=== PATIENT | female | born 1955 | race Caucasian/White ===

== ENCOUNTER → 2018-04-03 16:01 | Outpatient (CLI) | payer OTHER, SELFPAY ==
--- NOTE | 2018-04-06 09:59 | DIET.PN ---
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 Arrives with friend (partner?), Debby. Debby is very supportive. Pt has lost wt and regained many times. Now has hyperlipidemia and pre-diabetes, though minimizing those health issues. Hesitant to discuss weight- understandable so. Gets minimal exercise, especially during tax season. Admits she does feel better when she does some walking during tax season. Along with not moving, clients bring her candy and states candy/carbs are like crack cocaine to her. Usual diet: 3 meals - brk, late lunch and late dinner. Snacks on nuts. (and candy) Dx: morbid obesity, pre-DM, hyperlipidemia, HTN (though pt thinks this is one episode and r/t cold meds) Ht 5'8 Wt (per MD visit): 366# (166.4kg) Deferred weighing today BMI: 55 A1C: 6.5 Assessment: Obstacles to wt loss success - morbid obesity w/presumed inflammation and dysmetabolism, sedentary lifestyle and work environment, carb cravings/sugar addict. Pt hesitant but became more engaged in trying to make lifestyle changes as session continued. Intervention: Provided ed on inflammation and effect of dysmetabolism on appetite regulation/carb cravings; nutrients in food and effect on blood glucose, inflammatory effect of excessive sugar. Plan: Keep food rec (phone gifty, if desire) Very low carb or Keto diet to tame cravings and appetite Prep to exercise - get out treadmill/make accessible; download exercise playlist (likes to move to music), etc Devise method of disposing candy F/u 2 wks
== END ==
PROVIDERS: PCP Nurse Practitioner Family; Visit Provider Nurse Practitioner Family
DX: E66.01 Morbid (severe) obesity due to excess calories (principal); Z68.43 Body mass index [BMI] 50.0-59.9, adult; R73.03 Prediabetes; I10 Essential (primary) hypertension; E78.5 Hyperlipidemia, unspecified
CPT/HCPCS: 97802

== ENCOUNTER 2018-11-13 07:43 | Day surgery (SDC) | payer OTHER, SELFPAY ==
--- NOTE | 2018-11-13 | PATH_ITS ---
[facility] Accession Number: [id number] . 01 Material submitted: . PART A: colon - COLON POLYP AT 65 CM PART B: colon - COLON POLYP AT 40 CM PART C: rectum - RECTUM POLYP, NEAR ANUS . 02 Diagnosis: A. Colon at 65 cm, Polyp: Tubular adenoma. . B. Colon at 40 cm, Polyp: Tubular adenoma. . C. Rectum, Near Anus, Polyp: Hyperplastic polyp. MRV/11/14/2018 . 02 Electronically signed: . Lauri Berry MD, PhD, Pathologist NPI- [id number] . 01 Gross description: . Part A: COLON POLYP AT 65 CM: Received in formalin are 3 fragment(s) of can, soft tissue measuring 0.1 x 0.1 x 0.1 cm to 0.3 x 0.2 x 0.1 cm which is entirely submitted and submitted entirely in 1 cassette(s) Part B: COLON POLYP AT 40 CM: Received in formalin is 1 fragment(s) of can, soft tissue measuring 0.6 x 0.5 x 0.5 cm which is entirely submitted and submitted entirely in 1 cassette(s) Part C: RECTUM POLYP, NEAR ANUS: Received in formalin is 1 fragment(s) of can, soft tissue measuring 0.2 x 0.1 x 0.1 cm which is entirely submitted and submitted entirely in 1 cassette(s) /[facility] /[facility] . 02 Pathologist provided ICD-10: D12.6, K62.1 . 02 CPT . 734092, 959451, [id number] Performed at: [address], [place], [place] [id number] MD Berny Isaac MD Phone: [phone] Performed at: 02 [facility] [address] [place] [id number] MD Kia Carpenter MD Phone: [phone]
[2018-11-13 08:13] VITALS: BP 155/91; PULSE 80; RESP 15; TEMP 36.3; O2SAT 96; BMI 52.6
--- NOTE | 2018-11-13 08:50 | PM.HP.1 ---
History of Present Illness Date Patient Seen: 11/13/18 Time Patient Seen: 08:50 Chief complaint: [id number] Narrative: The patient is woman who is never had a colonoscopy. She 63. Her father had polyps. Patient History Medical History Prediabetes (Acute) Surgical History S/P tonsillectomy and adenoidectomy (Acute) Social History household members: none Family & Social History Social History: household members none Meds Home Medications Medication Instructions Recorded Confirmed Type acetaminophen [Tylenol 8 Hour] 1,300 mg PO Q8H PRN 11/13/18 11/13/18 History naproxen sodium [Aleve] 220 mg PO Q12H PRN 11/13/18 11/13/18 History Allergies Allergy/AdvReac Type Severity Reaction Status Date / Time No Known Allergies Allergy Uncoded 06/28/17 12:46 Review of Systems Review of Systems All systems reviewed & are unremarkable except as noted in HPI and below Exam Vital Signs (past 8 hours): - 11/13/18 08:13 Temperature 97.4 F L Pulse Rate 80 Respiratory Rate 15 Blood Pressure 155/91 H Pulse Oximetry 96 Oxygen Delivery Method Room Air Narrative Exam Narrative: Pleasant cooperative patient no apparent distress. Lungs are clear to auscultation. No rales or rhonchi. Heart regular rate and rhythm no murmur gallop. Abdomen is soft nontender without mass. Her BMI is 52 and would be difficult to feel abnormalities. No obvious hernias. Patient is alert and oriented x3. Assessment & Plan Assessment & Plan narrative: The patient for a screening colonoscopy. I have discussed the procedure with them. Risks of bleeding, perforation which would necessitate major operation, failure to find remove all lesions, the potential tattoo were all discussed. All questions were answered. They wished to proceed.
[2018-11-13] MEDS: fentaNYL 250 MCG/5 ML INJ IV (09:01)
[2018-11-13] MEDS: MIDAZOLAM 5 MG/5 ML VIAL IV (09:01)
--- NOTE | 2018-11-13 09:27 | P.OP.ENDO_ITS ---
Operative Date/Time/Diagnoses Date of procedure: 11/13/18 Time of procedure: 09:23 Pre-op diagnosis: Screening exam. This is her 1st colonoscopy. Post-op diagnosis: same (Polyps) Procedure & Clinicians Study performed: Colonoscopy with cold biopsy and hot snare polypectomy Same procedure as scheduled: Yes Indications: Screening Surgeon: Johnathon Morales Procedure Notes SCOAP/Timeout: Performed Procedure in detail: The patient was placed in the left lateral decubitus position and underwent IV sedation directed by the surgeon consisting of fentanyl and Versed. Digital exam was remarkable for external hemorrhoids.. T he scope was inserted and advanced through the rectum into the sigmoid, descending, transverse, and ascending colon. I encountered a polyp on the way in that it was large enough that I decided to snare on the way out the patient was noted to have diverticulosis on both sides of her colon.. The cecum was reached identified by the ileocecal valve . A portion of the cecum could not be well seen. The scope was gradually brought out. Polyps were found at 65 cm, 40 cm and a small rectal polyp. The lesion of 40 cm with the largest and required a hot snare polypectomy performed. The other lesions were removed with cold biopsy forceps.. The scope ultimately was retroflexed in the rectum. The appearance was remarkable for small polyp which I removed.. The scope was removed and the patient tolerated the procedure well. The prep was very good. Scope withdrawal time: 10 1/2 minutes total Sedation minutes: 25 Findings: diverticulosis (Witt colonic) and polyp Specimen(s): other (Polyps) Complications: none Recommendations: Colonscopy in 5 years Follow up: as needed Disposition: PACU
[2018-11-13 09:29] VITALS: BP 127/82; PULSE 71; RESP 16; TEMP 36; O2SAT 97
[2018-11-13 09:34] VITALS: BP 127/79; PULSE 67; RESP 12; O2SAT 97
[2018-11-13 09:38] VITALS: BP 118/73; PULSE 69; RESP 12; TEMP 36; O2SAT 95
== END 2018-11-13 09:55 | disposition home or self-care (01) ==
PROVIDERS: PCP Nurse Practitioner Family; Visit Provider Specialist
PROC: 0DJD8ZZ Inspection of Lower Intestinal Tract, Via Natural or Artificial Opening Endoscopic (ICD-10-PCS; CPT 45378; principal; 2018-11-13 08:45)
DX: Z12.11 Encounter for screening for malignant neoplasm of colon (principal); D12.6 Benign neoplasm of colon, unspecified; K62.1 Rectal polyp; K64.4 Residual hemorrhoidal skin tags; K57.30 Diverticulosis of large intestine without perforation or abscess without bleeding; Z83.71 Family history of colonic polyps
CPT/HCPCS: 45385; 45380; 99152; J2250; J3010

== ENCOUNTER → 2019-08-22 09:59 | Outpatient (CLI) | payer OTHER, SELFPAY ==
--- NOTE | 2019-08-22 10:01 | DI.US.S_ITS ---
PROCEDURE: US PELVIC COMPLETE INDICATIONS: POSTMENOPAUSAL BLEEDING TECHNIQUE: Real-time scanning was performed of the pelvic organs, with image documentation. Additional endovaginal scanning was necessary due to incomplete visualization of the adnexal and endometrial structures by transabdominal scanning. COMPARISON: None. FINDINGS: Transabdominal scanning: Limited scanning through the kidneys shows no hydronephrosis. No pathologic free abdominal or pelvic fluid. Endovaginal scanning: Uterus: Uterus is abnormally enlarged in size for postmenopausal patient at 6.8 x 7.6 x 8.4 cm. The endometrium measures 55 mm in combined thickness, containing a heterogeneous internal masslike structure. Increased blood flow is associated. Ovaries: Not seen on the right and measuring 3.6 x 5.4 x 5.3 cm on the left with a complex cystic structure containing several internal septations within, measuring up to 3.8 x 2.9 x 4.5 cm. IMPRESSION: 2 separate areas of pathology appear present, the 5.5 cm thick endometrial lesion representing the most likely site of malignancy. Gynecological consultation is recommended for what appears to be likelihood of endometrial carcinoma. Additionally, there is a mild to moderately complex cyst at the left ovary, measuring up to 3.8 x 2.9 x 4.5 cm which by size and appearance is considered potentially a manifestation of malignancy also. The right ovary could not be located. Dictated by: Woody Hood M.D. on 08/22/2019 at 11:28 Approved by: Woody Hood M.D. on 08/22/2019 at 11:32
[2019-08-22 11:30] LABS: Hemoglobin A1C% w Est Avg Glu 6.5 % (4.0-6.0)
[2019-08-22 11:32] LABS: Add Manual Diff / Slide Review NO; Basophils Absolute Auto 0 /uL (0-100); Basophils Percent Auto 0.5 % (0-2); Eosinophils Absolute Auto 200 /uL (0-450); Eosinophils Percent Auto 3.1 % (2-4); Hematocrit 39.2 % (36-46); Hemoglobin 13.1 g/dL (12.0-16.0); Lymphocytes Absolute Auto 500 /uL (1100-4500); Lymphocytes Percent Auto 8.9 % (25-40); Mean Corpuscular HGB Conc 33.5 % (30-36); Mean Corpuscular Hemoglobin 27.8 PG (26-34); Mean Corpuscular Volume 83.2 fL (80-100); Monocytes Absolute Auto 700 /uL (0-900); Monocytes Percent Auto 11.7 % (3-14); Neutrophils Absolute Auto 4300 /uL (1500-7000); Neutrophils Percent Auto 75.8 % (50-75); Platelet Count 284 X10^3/uL (150-400); Red Blood Cell Count 4.71 X10^6/uL (4.0-5.2); Red Cell Distribution Width 15.7 % (11.6-14.8); White Blood Cell Count 5.6 X10^3/uL (4.5-11.0)
[2019-08-22 11:34] LABS: Alanine Aminotransferase 26 IU/L (<35); Albumin 4.4 g/dL (3.5-5.0); Albumin Globulin Ratio 1.5 (1.0-2.8); Alkaline Phosphatase 66 U/L (38-126); Aspartate Aminotransferase 32 IU/L (14-36); BUN Creatinine Ratio 21.8 (6-22); Bilirubin Total 0.4 mg/dL (0.2-1.3); Blood Urea Nitrogen 17 mg/dL (7-17); Calcium 9.9 mg/dL (8.4-10.2); Carbon Dioxide 25 mmol/L (22-32); Chloride 104 mmol/L (98-107); Estimated Glomerular Filt Rate > 60.0 mL/min (>60); Glucose 118 mg/dL (80-110); HEMOLYSIS < 15 (0-50); Potassium 4.5 mmol/L (3.4-5.1); Sodium 139 mmol/L (137-145); Total Protein 7.4 g/dL (6.3-8.2)
[2019-08-22 11:51] LABS: Vitamin D 25 Hydroxy (D3) 16.1 ng/mL (30.0-100.0)
[2019-08-22 12:03] LABS: Free T3, Triiodothyronine Free 3.24 pg/mL (2.77-5.27); Free T4, Direct Thyroxine 1.15 ng/dL (0.78-2.19)
[2019-08-22 12:17] LABS: Thyroid Stimulating Hormone 3.79 uIU/mL (0.47-4.68)
== END ==
PROVIDERS: PCP Family Medicine; Referring Provider Family Medicine; Visit Provider Family Medicine
DX: N95.0 Postmenopausal bleeding (principal); R73.03 Prediabetes; N85.9 Noninflammatory disorder of uterus, unspecified; N83.292 Other ovarian cyst, left side
CPT/HCPCS: 36415; 76830; 76856; 80053; 82306; 83036; 84439; 84443; 84481; 85025

== ENCOUNTER → 2019-08-28 16:30 | Outpatient (CLI) | payer OTHER, SELFPAY ==
[2019-08-28 18:18] LABS: Cancer Antigen 125 147 U/mL (0-35); Carcinoembryonic Antigen 1.8 ng/mL (0.1-3.0)
[2019-08-29 14:08] LABS: Cancer (Carbohydrate) Ag 19-9 44 U/mL (0-35)
[2019-08-31 18:10] LABS: Estrogen 119 pg/mL (.)
[2019-09-03 13:39] LABS: Inhibin B <7.0 pg/mL (0.0-16.9)
== END ==
PROVIDERS: PCP Family Medicine; Referring Provider Obstetrics & Gynecology; Visit Provider Obstetrics & Gynecology
DX: N83.202 Unspecified ovarian cyst, left side (principal); N94.89 Other specified conditions associated with female genital organs and menstrual cycle; N95.0 Postmenopausal bleeding
CPT/HCPCS: 82378; 82672; 83520; 86301; 86304; 86305; 86336

== ENCOUNTER → 2020-08-07 11:05 | Outpatient (CLI) | payer OTHER, SELFPAY ==
[2020-08-07 11:56] LABS: Add Manual Diff / Slide Review NO; Basophils Absolute Auto 0 /uL (0-100); Basophils Percent Auto 0.6 % (0-2); Eosinophils Absolute Auto 200 /uL (0-450); Hematocrit 39.6 % (36-46); Hemoglobin 13.2 g/dL (12.0-16.0); Lymphocytes Absolute Auto 500 /uL (1100-4500); Lymphocytes Percent Auto 8.2 % (25-40); Mean Corpuscular HGB Conc 33.4 % (30-36); Mean Corpuscular Hemoglobin 29.7 PG (26-34); Mean Corpuscular Volume 88.8 fL (80-100); Monocytes Absolute Auto 600 /uL (0-900); Monocytes Percent Auto 9.7 % (3-14); Neutrophils Absolute Auto 4600 /uL (1500-7000); Neutrophils Percent Auto 78.5 % (50-75); Platelet Count 335 X10^3/uL (150-400); Red Blood Cell Count 4.46 X10^6/uL (4.0-5.2); Red Cell Distribution Width 14.9 % (11.6-14.8); White Blood Cell Count 5.8 X10^3/uL (4.5-11.0)
[2020-08-07 12:04] LABS: Hemoglobin A1C% w Est Avg Glu 5.7 % (4.0-6.0)
[2020-08-07 12:19] LABS: Alanine Aminotransferase 26 IU/L (<35); Albumin 4.5 g/dL (3.5-5.0); Albumin Globulin Ratio 1.6 (1.0-2.8); Alkaline Phosphatase 73 U/L (38-126); Aspartate Aminotransferase 28 IU/L (14-36); BUN Creatinine Ratio 24.7 (6-22); Bilirubin Total 0.3 mg/dL (0.2-1.3); Blood Urea Nitrogen 18 mg/dL (7-17); Calcium 10.4 mg/dL (8.4-10.2); Carbon Dioxide 26 mmol/L (22-32); Chloride 104 mmol/L (98-107); Cholesterol 210 mg/dL (140-199); Estimated Glomerular Filt Rate > 60.0 mL/min (>60); Globulin 2.9 g/dL (1.7-4.1); Glucose 114 mg/dL (80-110); HDL Cholesterol 37 mg/dL (40-60); HEMOLYSIS < 15 (0-50); LDL Cholesterol Calculated 135 mg/dL (<100); Potassium 4.2 mmol/L (3.4-5.1); Sodium 140 mmol/L (137-145); Total Protein 7.4 g/dL (6.3-8.2); Triglycerides 192 mg/dL (35-150)
[2020-08-07 16:30] LABS: Vitamin D 25 Hydroxy (D3) 52.7 ng/mL (30.0-100.0)
== END ==
PROVIDERS: PCP Family Medicine; Referring Provider Family Medicine; Visit Provider Family Medicine
DX: E11.9 Type 2 diabetes mellitus without complications (principal); E55.9 Vitamin D deficiency, unspecified; Z68.42 Body mass index [BMI] 45.0-49.9, adult
CPT/HCPCS: 36415; 80053; 80061; 82306; 83036; 85025

== ENCOUNTER → 2021-04-03 09:20 | Outpatient (CLI) | payer OTHER, SELFPAY ==
[2021-04-03 10:11] LABS: COVID19 -Nasal RAPID Negative (Negative)
== END ==
PROVIDERS: PCP Family Medicine; Referring Provider Nurse Practitioner Family; Visit Provider Nurse Practitioner Family
DX: Z20.822 Contact with and (suspected) exposure to COVID-19 (principal)
CPT/HCPCS: 87635

== ENCOUNTER → 2021-09-14 10:11 | Outpatient (CLI) | payer OTHER, SELFPAY ==
[2021-09-14 10:36] LABS: Add Manual Diff / Slide Review NO; Basophils Absolute Auto 0 /uL (0-100); Basophils Percent Auto 0.7 % (0-2); Eosinophils Absolute Auto 700 /uL (0-450); Eosinophils Percent Auto 11.3 % (2-4); Hematocrit 41.3 % (36-46); Hemoglobin 14.4 g/dL (12.0-16.0); Lymphocytes Absolute Auto 1000 /uL (1100-4500); Lymphocytes Percent Auto 17.2 % (25-40); Mean Corpuscular HGB Conc 34.8 % (30-36); Mean Corpuscular Hemoglobin 31.5 PG (26-34); Mean Corpuscular Volume 90.5 fL (80-100); Monocytes Absolute Auto 500 /uL (0-900); Monocytes Percent Auto 8.8 % (3-14); Neutrophils Absolute Auto 3700 /uL (1500-7000); Platelet Count 227 X10^3/uL (150-400); Red Blood Cell Count 4.57 X10^6/uL (4.0-5.2); Red Cell Distribution Width 16.2 % (11.6-14.8)
[2021-09-14 10:54] LABS: Alanine Aminotransferase 53 IU/L (<35); Albumin 4.6 g/dL (3.5-5.0); Albumin Globulin Ratio 1.6 (1.0-2.8); Alkaline Phosphatase 63 U/L (38-126); Aspartate Aminotransferase 50 IU/L (14-36); BUN Creatinine Ratio 19.8 (6-22); Bilirubin Total 0.6 mg/dL (0.2-1.3); Blood Urea Nitrogen 18 mg/dL (7-17); Calcium 9.8 mg/dL (8.4-10.2); Carbon Dioxide 26 mmol/L (22-32); Chloride 105 mmol/L (98-107); Cholesterol 206 mg/dL (140-199); Estimated Glomerular Filt Rate > 60 mL/min (>60); Globulin 2.9 g/dL (1.7-4.1); Glucose 110 mg/dL (80-110); HDL Cholesterol 34 mg/dL (40-60); HEMOLYSIS < 15 (0-50); LDL Cholesterol Calculated 130 mg/dL (<100); Potassium 4.3 mmol/L (3.4-5.1); Sodium 139 mmol/L (137-145); Total Protein 7.5 g/dL (6.3-8.2); Triglycerides 208 mg/dL (35-150)
[2021-09-14 11:17] LABS: Hemoglobin A1C% w Est Avg Glu 5.9 % (4.0-6.0)
== END ==
PROVIDERS: PCP Family Medicine; Referring Provider Family Medicine; Visit Provider Family Medicine
DX: E11.9 Type 2 diabetes mellitus without complications (principal); E55.9 Vitamin D deficiency, unspecified; Z68.42 Body mass index [BMI] 45.0-49.9, adult
CPT/HCPCS: 36415; 80053; 80061; 83036; 85025

== ENCOUNTER 2022-02-03 12:14 | Inpatient (IN) | payer OTHER, SELFPAY ==
[2022-02-03] VITALS (21 sets, daily range): BP systolic 72–107; BP diastolic 38–62; PULSE 69–81; RESP 14–24; TEMP 35.6–36.3; O2SAT 92–100; BMI 44.1
--- NOTE | 2022-02-03 14:32 | ED_ITS ---
HPI - Abdominal Pain General Chief Complaint: Abdominal Pain Stated Complaint: Endometrial cancer, NonHodgkins lymphoma, ABD pain Time Seen by Provider: 02/03/22 14:31 Source: patient Mode of arrival: Ambulatory Limitations: no limitations History of Present Illness HPI narrative: This is a 66-year-old female with endometrial cancer, non-Hodgkin's lymphoma who is in between chemotherapy treatments. Patient states she is been having some abdominal discomfort that has been slowly worsening over the past 2 months, particularly the last month and really ramped up over the past week. She did have her COVID/influenza vaccination at beginning of the week. She would a temperature of a 100? F at 1 point but has not had persistent. She states eating too much food really increases her pain she describes it as across her abdomen at the mid level but also left flank when this happens. She denies nausea or vomiting. She denies chest pain or shortness of breath. She denies dysuria urgency or frequency. No vaginal bleeding or discharge. Patient states she has been having loose stools she normally takes a stool softener but they have been more diarrheal no black or bloody stools but she has significant re ctal pain when having bowel movements. She does have tumors that are growing through her skin on her anterior abdomen but she states they are not draining do not appear to have been red or infected. She follows with [facility] for her endometrial cancer and [facility] for her lymphoma. Patient has had prior hysterectomy in 2019. She denies allergies to medications. She is been taking Tylenol 500 mg to a 1000 mg for pain she has found this helpful. Her last dose of lenvatinib was January 24 as well as Keytruda. She is supposed to start a new chemotherapy tomorrow. Patient presents today after reaching out to the nursing hotline they did not call her yesterday she spoke with them this morning and they recommended she come for evaluation. Related Data Home Medications Medication Instructions Recorded Confirmed lenvatinib 14 mg/day (10 mg x 1 14 mg PO DAILY 09/14/21 10/29/21 and 4 mg x 1) capsule (Lenvima) pembrolizumab 25 mg/mL intravenous 200 mg IV Q3W 09/14/21 10/29/21 solution (Keytruda) apixaban 5 mg tablet (Eliquis) 5 mg PO BID 10/29/21 10/29/21 lisinopril 10 mg tablet 20 mg PO DAILY 10/29/21 magnesium oxide 400 mg PO BID 10/29/21 10/29/21 sennosides 8.6 mg capsule (senna) 8.6 mg PO DAILY PRN 10/29/21 10/29/21 Allergies Allergy/AdvReac Type Severity Reaction Status Date / Time No Known Drug Allergies Allergy Verified 02/03/22 12:21 Review of Systems Review of Systems ROS Unobtainable: All systems reviewed & are unremarkable except as noted in HPI and below Patient History Medical History Actinic keratosis due to exposure to sunlight BMI 45.0-49.9, adult Diabetes Endometrial cancer HTN (hypertension) Lymphocytopenia Non-Hodgkins lymphoma Right arm pain Screening for breast cancer Transaminitis Vitamin D deficiency Surgical History S/P tonsillectomy and adenoidectomy Family History Father Diabetes mellitus Mother CAD (coronary artery disease) Social History household members: none Smoking Status: Never smoker alcohol intake: never substance use type: does not use Smoking Status: Never smoker alcohol intake frequency: holidays/special occasions only Substance Use Type: does not use Exam Narrative Exam Narrative: GENERAL: Alert and oriented x three, obese female in mild distress. Patient appears pale but according to her and family this is fairly normal for her. HEENT: Head normocephalic, atraumatic, EOMI, pupils reactive, face symmetric, moist mucous membranes NECK: Supple, full range of motion CARDIOVASCULAR: Regular rate and rhythm without murmurs, rubs or gallops. RESPIRATORY: Breath sounds equal bilaterally, no wheezes rales or rhonchi. ABDOMEN: Soft, nontender. Normoactive bowel sounds all 4 quadrants. No guarding or rebound, rigidity, no mass. Patient is distended but also has large pannus about 2 cm below her umbilicus there is protruding mass with hyperpigmented skin changes but no warmth or erythema that is nontender. Patient states this is her masses growing through her skin. There is no foul odor or drainage. The area is nontender to touch. : No CVA tenderness EXTREMITIES: Normal range of motion, no clubbing or edema. Neurovascularly intact NEUROLOGICAL: Cranial nerves II through XII grossly intact. Moving all extremities SKIN: Warm, dry, no petechiae, no rashes or lesions. Initial Vital Signs Initial Vital Signs: Vital Signs Temperature 96.0 F L 02/03/22 12:21 Pulse Rate 70 02/03/22 12:21 Respiratory Rate 22 02/03/22 12:21 Blood Pressure 99/59 L 02/03/22 12:21 Pulse Oximetry 98 02/03/22 12:21 Oxygen Delivery Method 02/03/22 12:21 Course Orders Ordered: ED Orders 02/03/22 15:00 CT abdomen pelvis w con Stat 02/03/22 15:20 Complete Blood Count AUTO DIFF Stat Comprehensive Metabolic Panel Stat Lactate (Lactic Acid) Stat Lipase Stat Procalcitonin Stat Prothrombin Time INR Stat Type and Screen Stat 02/03/22 15:50 EKG-12 Lead Stat 02/03/22 15:57 Blood Culture Stat 02/03/22 16:35 Urine Culture Stat Urine Microscopic Stat 02/03/22 16:57 Covid-19 + FLU A/B + RSV - PCR Stat 02/03/22 17:09 Chest [XR chest 1V] Stat Acetaminophen (Acetaminophen 325 Mg Tablet) 650 mg PO Q6H PRN PRN Reason: Fever/Mild Pain (1-3) Last Admin: 02/03/22 18:03 Dose: 650 mg Documented By: AT Hydromorphone HCl (Hydromorphone 0.5 Mg Inj) 0.5 mg IV Q4H PRN PRN Reason: Pain, Moderate (4-6) Sodium Chloride (Normal Saline 0.9%) 1,000 mls @ 100 mls/hr IV CONT YOLETTE Stop: 02/04/22 05:29 Piperacillin Sod/Tazobactam (Sod 3.375 gm/ Sodium Chloride) 100 mls @ 25 mls/hr IV Q8H YOLETTE Vancomycin HCl/Dextrose (Vancomycin) 2,000 mg in 400 mls @ 200 mls/hr IV NOW ONE Stop: 02/03/22 19:40 Naloxone HCl (Naloxone 0.4 Mg/Ml Vial) 0.2 mg IV Q2MIN PRN PRN Reason: Opiate Reversal Polyethylene Glycol (Polyethylene Glycol 3350 17 Gm Powd.Pack) 17 gm PO DAILY PRN PRN Reason: Constipation Sennosides (Sennosides 8.6 Mg Tablet) 8.6 mg PO BID PRN PRN Reason: Constipation Discontinued Medications Sodium Chloride (Normal Saline 0.9%) 1,000 mls @ 1,000 mls/hr IV BOLUS ONE Stop: 02/03/22 15:58 Last Admin: 02/03/22 15:46 Dose: Not Given Documented By: DARLEEN Sodium Chloride (Normal Saline 0.9%) 3,946.26 mls @ 1,315.42 mls/hr 30 ml/kg infuse over 3 hr (3946.26 ml) IV NOW ONE Stop: 02/03/22 18:05 Last Infusion: 02/03/22 18:24 Dose: 0 mls/hr Documented By: Admin: 02/03/22 15:32 Dose: 1,315.42 mls/hr Documented By: DARLEEN Piperacillin Sod/Tazobactam (Sod 4.5 gm/ Sodium Chloride) 100 mls @ 200 mls/hr IV NOW ONE Stop: 02/03/22 16:32 Last Infusion: 02/03/22 17:40 Dose: 0 mls/hr Documented By: Admin: 02/03/22 16:58 Dose: 200 mls/hr Documented By: DARLEEN Ondansetron HCl (Ondansetron 4 Mg/2 Ml Inj) 4 mg IV NOW ONE Stop: 02/03/22 12:28 Last Admin: 02/03/22 15:42 Dose: Not Given Documented By: DARLEEN Vital Signs Vital signs: Vital Signs - 8 hr 02/03/22 12:21 02/03/22 14:41 02/03/22 15:00 Temperature 96.0 F L Pulse Rate 70 79 72 Respiratory Rate 22 17 Blood Pressure 99/59 L Pulse Oximetry 98 92 98 Oxygen Delivery Method Room Air Room Air Room Air 02/03/22 15:04 02/03/22 15:04 02/03/22 15:08 Temperature Pulse Rate 73 Respiratory Rate 19 Blood Pressure 72/38 L 82/41 L Pulse Oximetry 98 Oxygen Delivery Method Room Air 02/03/22 15:08 02/03/22 15:15 02/03/22 15:15 Temperature Pulse Rate 75 76 Respiratory Rate 22 23 Blood Pressure 95/48 L Pulse Oximetry 100 99 Oxygen Delivery Method Room Air 02/03/22 15:30 02/03/22 15:30 02/03/22 15:40 Temperature Pulse Rate 73 70 Respiratory Rate 19 17 Blood Pressure 85/47 L Pulse Oximetry 99 99 Oxygen Delivery Method Room Air Room Air 02/03/22 15:40 02/03/22 15:50 02/03/22 15:50 Temperature Pulse Rate 69 Respiratory Rate 21 Blood Pressure 82/48 L 88/44 L Pulse Oximetry 98 Oxygen Delivery Method Room Air 02/03/22 16:00 02/03/22 16:32 02/03/22 16:37 Temperature Pulse Rate 73 81 Respiratory Rate Blood Pressure 107/53 L Pulse Oximetry 99 Oxygen Delivery Method 02/03/22 16:37 02/03/22 16:40 02/03/22 16:40 Temperature Pulse Rate 73 72 Respiratory Rate 21 15 Blood Pressure 106/52 L Pulse Oximetry 100 100 Oxygen Delivery Method 02/03/22 16:50 02/03/22 16:50 02/03/22 17:00 Temperature Pulse Rate 71 Respiratory Rate 19 Blood Pressure 97/55 L 101/52 L Pulse Oximetry 100 Oxygen Delivery Method Room Air 02/03/22 17:00 02/03/22 17:10 02/03/22 17:10 Temperature Pulse Rate 72 72 Respiratory Rate 20 21 Blood Pressure 104/51 L Pulse Oximetry 100 100 Oxygen Delivery Method Room Air 02/03/22 17:21 02/03/22 17:21 Temperature Pulse Rate 74 Respiratory Rate 24 Blood Pressure 99/59 L Pulse Oximetry 99 Oxygen Delivery Method Room Air MDM - Abdominal Pain Lab Data Result diagrams: 02/03/22 15:20 02/03/22 15:20 Labs: Lab Results 02/03/22 02/03/22 02/03/22 Range/Units 15:20 15:20 15:20 WBC 14.0 H (4.5-11.0) X10^3/uL RBC 3.58 L (4.0-5.2) X10^6/uL Hgb 11.3 L (12.0-16.0) g/dL Hct 34.9 L (36-46) % MCV 97.6 (80-100) fL MCH 31.7 (26-34) PG MCHC 32.5 (30-36) % RDW 15.0 H (11.6-14.8) % Plt Count 491 H (150-400) X10^3/uL Neut % (Auto) 82.6 H (50-75) % Lymph % (Auto) 5.6 L (25-40) % [place] % (Auto) 10.2 (3-14) % Eos % (Auto) 1.2 L (2-4) % Baso % (Auto) 0.4 (0-2) % Neut # (Auto) 73836 H (0815-5296) /uL Lymph # (Auto) 800 L (3256-8581) /uL [place] # (Auto) 1400 H (0-900) /uL Eos # (Auto) 200 (0-450) /uL Baso # (Auto) 100 (0-100) /uL PT 17.8 H (10.1-12.7) SECONDS INR 1.5 H (0.9-1.3) Sodium 132 L (137-145) mmol/L Potassium 4.7 (3.4-5.1) mmol/L Chloride 101 (98-107) mmol/L Carbon Dioxide 20 L (22-32) mmol/L BUN 80 H (7-17) mg/dL Creatinine 1.68 H (0.52-1.04) mg/dL Estimated GFR 34 L (>60) mL/min BUN/Creatinine Ratio 47.6 H (6-22) Glucose 127 H (80-110) mg/dL Lactate (0.7-2.1) mmol/L Calcium 9.2 (8.4-10.2) mg/dL Magnesium (1.6-2.3) mg/dL Total Bilirubin 0.6 (0.2-1.3) mg/dL AST 28 (14-36) IU/L ALT 18 (<35) IU/L Alkaline Phosphatase 114 (38-126) U/L Total Protein 6.1 L (6.3-8.2) g/dL Albumin 3.0 L (3.5-5.0) g/dL Globulin 3.1 (1.7-4.1) g/dL Albumin/Globulin Ratio 1.0 (1.0-2.8) Lipase 53 (23-300) U/L Procalcitonin (<0.5) ng/mL Urine RBC (0-5/HPF) Urine WBC (0-5/HPF) Ur Squamous Epith Cells (0-5/HPF) Urine Bacteria (None) Hyaline Casts (None) Ur Culture Indicated? SARS-CoV-2 (PCR) (Negative) Influenza A (RT-PCR) (NEGATIVE) Influenza B (RT-PCR) (NEGATIVE) RSV (PCR) (Negative) Blood Type Antibody Screen 02/03/22 02/03/22 02/03/22 Range/Units 15:20 15:20 15:20 WBC (4.5-11.0) X10^3/uL RBC (4.0-5.2) X10^6/uL Hgb (12.0-16.0) g/dL Hct (36-46) % MCV (80-100) fL MCH (26-34) PG MCHC (30-36) % RDW (11.6-14.8) % Plt Count (150-400) X10^3/uL Neut % (Auto) (50-75) % Lymph % (Auto) (25-40) % [place] % (Auto) (3-14) % Eos % (Auto) (2-4) % Baso % (Auto) (0-2) % Neut # (Auto) (0038-7489) /uL Lymph # (Auto) (4687-1110) /uL [place] # (Auto) (0-900) /uL Eos # (Auto) (0-450) /uL Baso # (Auto) (0-100) /uL PT (10.1-12.7) SECONDS INR (0.9-1.3) Sodium (137-145) mmol/L Potassium (3.4-5.1) mmol/L Chloride (98-107) mmol/L Carbon Dioxide (22-32) mmol/L BUN (7-17) mg/dL Creatinine (0.52-1.04) mg/dL Estimated GFR (>60) mL/min BUN/Creatinine Ratio (6-22) Glucose (80-110) mg/dL Lactate 0.9 (0.7-2.1) mmol/L Calcium (8.4-10.2) mg/dL Magnesium (1.6-2.3) mg/dL Total Bilirubin (0.2-1.3) mg/dL AST (14-36) IU/L ALT (<35) IU/L Alkaline Phosphatase (38-126) U/L Total Protein (6.3-8.2) g/dL Albumin (3.5-5.0) g/dL Globulin (1.7-4.1) g/dL Albumin/Globulin Ratio (1.0-2.8) Lipase (23-300) U/L Procalcitonin 1.69 H (<0.5) ng/mL Urine RBC (0-5/HPF) Urine WBC (0-5/HPF) Ur Squamous Epith Cells (0-5/HPF) Urine Bacteria (None) Hyaline Casts (None) Ur Culture Indicated? SARS-CoV-2 (PCR) (Negative) Influenza A (RT-PCR) (NEGATIVE) Influenza B (RT-PCR) (NEGATIVE) RSV (PCR) (Negative) Blood Type O Positive Antibody Screen Negative 02/03/22 02/03/22 02/03/22 Range/Units 15:20 16:35 16:57 WBC (4.5-11.0) X10^3/uL RBC (4.0-5.2) X10^6/uL Hgb (12.0-16.0) g/dL Hct (36-46) % MCV (80-100) fL MCH (26-34) PG MCHC (30-36) % RDW (11.6-14.8) % Plt Count (150-400) X10^3/uL Neut % (Auto) (50-75) % Lymph % (Auto) (25-40) % [place] % (Auto) (3-14) % Eos % (Auto) (2-4) % Baso % (Auto) (0-2) % Neut # (Auto) (4190-0317) /uL Lymph # (Auto) (0145-4259) /uL [place] # (Auto) (0-900) /uL Eos # (Auto) (0-450) /uL Baso # (Auto) (0-100) /uL PT (10.1-12.7) SECONDS INR (0.9-1.3) Sodium (137-145) mmol/L Potassium (3.4-5.1) mmol/L Chloride (98-107) mmol/L Carbon Dioxide (22-32) mmol/L BUN (7-17) mg/dL Creatinine (0.52-1.04) mg/dL Estimated GFR (>60) mL/min BUN/Creatinine Ratio (6-22) Glucose (80-110) mg/dL Lactate (0.7-2.1) mmol/L Calcium (8.4-10.2) mg/dL Magnesium 2.5 H (1.6-2.3) mg/dL Total Bilirubin (0.2-1.3) mg/dL AST (14-36) IU/L ALT (<35) IU/L Alkaline Phosphatase (38-126) U/L Total Protein (6.3-8.2) g/dL Albumin (3.5-5.0) g/dL Globulin (1.7-4.1) g/dL Albumin/Globulin Ratio (1.0-2.8) Lipase (23-300) U/L Procalcitonin (<0.5) ng/mL Urine RBC 0-1/hpf (0-5/HPF) Urine WBC 1-5/hpf (0-5/HPF) Ur Squamous Epith Cells 0-1 /hpf (0-5/HPF) Urine Bacteria None seen (None) Hyaline Casts 1-5/lpf (None) Ur Culture Indicated? Cult not indicated SARS-CoV-2 (PCR) Negative (Negative) Influenza A (RT-PCR) Flu a negative (NEGATIVE) Influenza B (RT-PCR) Flu b negative (NEGATIVE) RSV (PCR) Negative (Negative) Blood Type Antibody Screen Point of care testing: Urine Dip Bedside Urine Glucose Negative Bedside Urine Bilirubin - Negative Bedside Urine Ketone - Negative Urine Specific [place] 1.020 Bedside Urine Occult Blood - Negative Bedside Urine pH 5.5 Bedside Urine Protein +/- 15 Bedside Urine Urobilinogen - Negative Bedside Urine Nitrite - Negative Bedside Urine Leukocytes - Negative Esterase Imaging Data CT scan - abdomen/pelvis: Radiologist's Impression: [address] [address] [address] Scan Report Signed Patient: Aishwarya Lisa MR#: [id number] : 1955 Acct:[id number] Age/Sex: 66 / F Date of Service: 02/03/22 Loc: ED Accession Number: [id number] ?? Procedure: CT abdomen pelvis w con Ordering Provider: Laury Blilings D.O. PROCEDURE:? CT ABDOMEN PELVIS W CON ? INDICATIONS:? abd pain, masses, endometrial ca/lymphoma ? TECHNIQUE:? After the administration of oral and IV contrast, axial sections were acquired from the lung bases to the pubic symphysis.? Coronal and sagittal reformats were p erformed.? For radiation dose reduction, the following was used:? automated exposure control, adjustment of mA and/or kV according to patient size. ? COMPARISON:? US, US PELVIC COMPLETE, 08/22/2019, 10:39. ? FINDINGS:? Image quality:? Excellent.? ? Lung bases:? 1.2 cm nodule in the right base series 3, image 7.? There are 2, 2 mm adjacent nodules in the lateral right lower lobe series 3, image 7. Heart:? No significant findings. ? ? ABDOMEN: Liver:? Multiple heterogeneously enhancing hepatic masses are identified.? There is a 4.2 x 4.0 cm hepatic dome lesion on series 2, image 12.? Anterior right hepatic lobe lesion measuring 0.9 x 1.0 cm on series 2, image 21. Posterior lateral lesion measuring 3.6 x 3.8 cm on series 2, image 34 posterior medial lesion series 2, image 34 measuring 1.4 x 1.3 cm.? A posterior inferior lesion measuring 1.8 x 2.1 cm on series 2, image 42 is present. Gallbladder:? Unremarkable.? ? Biliary ducts:? Unremarkable.? ? Pancreas:? Unremarkable.? ? Spleen:? Unremarkable.? ? Adrenal Glands:? Unremarkable.? ? Kidneys and Ureters:? Unremarkable.? ? ? Stomach and Bowel:? Mild hiatal hernia.? There is a heterogeneously enhancing mass in the region of the ascending colon measuring 12.1 x 11.0 by 11.6 cm.? There is no gross obstruction.? Peritoneum:? There is moderate fluid within the pericolic gutters bilaterally extending to the dependent pelvis.? There are areas of coarsening and soft tissue densities identified within the mesenteric fat most notably in the anterior abdomen on series 2 images 39 through 53. The largest is a solid-appearing mass on series 2, image 49 measuring 3.8 x 4.8 cm. .? ? Ventral Wall: ? No hernia.? Abdominal Nodes:? No retroperitoneal or mesenteric adenopathy by size criteria.? Vessels:? Aorta and inferior vena cava are normal in size.? ? PELVIS: Pelvic Organs:? Unremarkable.? ? Bladder:? Unremarkable.? ? Pelvic Nodes: No enlarged lymph nodes.? Miscellaneous: No inguinal hernias are seen. ? ? ? Bones:? Unremarkable.? IMPRESSION:? ? Large mass within the ascending colon as described above highly suggestive of malignancy. ?No visualized obstruction. ? Peritoneal carcinomatosis with dominant mass measuring 4.8 cm. ? Multiple heterogeneously enhancing hepatic lesions most concerning for metastatic disease. ? Abdominal and pelvic ascites. ? Pulmonary nodules the largest measuring 1.2 cm.? Given abdominal pelvic findi ngs, there concerning for metastatic disease.? ? ? Dictated by: Lola Damico M.D. on 02/03/2022 at 16:23 ? ? Approved by: Lola Damico M.D. on 02/03/2022 at 16:29?? ECG Data Attestation: I personally reviewed and interpreted this ECG as follows: Prior ECG tracings: available for review Interpretation: Sinus rhythm, rate of 70 IA 146, QRS [address]TC [address] No acute ST changes noted. MDM Narrative Medical decision making narrative: This is a 66-year-old female with known endometrial cancer and lymphoma in her abdomen with increasing abdominal pain no vomiting but painful rectal bowel movements and diarrhea concerning for possible obstructive or masses. This is a 66-year-old female with acute on chronic abdominal pain with known endometrial cancer and lymphoma she would a temperature of a 100? F earlier this week her blood pressures have been low, she appears to have acute kidney injury, BUN is 80, sodium is 132, LFTs are appropriate. Glucose is 127, patient has a white count of 14, lactate is negative but she does have leftward shift with elevated neutrophils, hemoglobin 11 was 14 in August of 2021. Patient's INR is 1.5 but she is on apixaban. Still waiting for urine sample but given 30 cc/kilos bolus and antibiotics initiated. CT shows large mass in the abdomen, peritoneal carcinoma tosis, multiple hepatic lesions, abdominal pelvic ascites with pulmonary nodules. No obvious obstructive changes. Patient seems to be responding to fluids, procalcitonin was added on this is pending but spoke with Dr. Chan who accepts for admission. No clear source has been found yet on CT abdomen pelvis, urine or elsewhere she does appear to have dehydration and acute kidney injury. Procalcitonin did pop positive, vancomycin was added on and cultures are currently. 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
--- NOTE | 2022-02-03 15:00 | DI.CT.S_ITS ---
PROCEDURE: CT ABDOMEN PELVIS W CON INDICATIONS: abd pain, masses, endometrial ca/lymphoma TECHNIQUE: After the administration of oral and IV contrast, axial sections were acquired from the lung bases to the pubic symphysis. Coronal and sagittal reformats were performed. For radiation dose reduction, the following was used: automated exposure control, adjustment of mA and/or kV according to patient size. COMPARISON: US, US PELVIC COMPLETE, 08/22/2019, 10:39. FINDINGS: Image quality: Excellent. Lung bases: 1.2 cm nodule in the right base series 3, image 7. There are 2, 2 mm adjacent nodules in the lateral right lower lobe series 3, image 7. Heart: No significant findings. ABDOMEN: Liver: Multiple heterogeneously enhancing hepatic masses are identified. There is a 4.2 x 4.0 cm hepatic dome lesion on series 2, image 12. Anterior right hepatic lobe lesion measuring 0.9 x 1.0 cm on series 2, image 21. Posterior lateral lesion measuring 3.6 x 3.8 cm on series 2, image 34 posterior medial lesion series 2, image 34 measuring 1.4 x 1.3 cm. A posterior inferior lesion measuring 1.8 x 2.1 cm on series 2, image 42 is present. Gallbladder: Unremarkable. Biliary ducts: Unremarkable. Pancreas: Unremarkable. Spleen: Unremarkable. Adrenal Glands: Unremarkable. Kidneys and Ureters: Unremarkable. Stomach and Bowel: Mild hiatal hernia. There is a heterogeneously enhancing mass in the region of the ascending colon measuring 12.1 x 11.0 by 11.6 cm. There is no gross obstruction. Peritoneum: There is moderate fluid within the pericolic gutters bilaterally extending to the dependent pelvis. There are areas of coarsening and soft tissue densities identified within the mesenteric fat most notably in the anterior abdomen on series 2 images 39 through 53. The largest is a solid-appearing mass on series 2, image 49 measuring 3.8 x 4.8 cm. . Ventral Wall: No hernia. Abdominal Nodes: No retroperitoneal or mesenteric adenopathy by size criteria. Vessels: Aorta and inferior vena cava are normal in size. PELVIS: Pelvic Organs: Unremarkable. Bladder: Unremarkable. Pelvic Nodes: No enlarged lymph nodes. Miscellaneous: No inguinal hernias are seen. Bones: Unremarkable. IMPRESSION: Large mass within the ascending colon as described above highly suggestive of malignancy. No visualized obstruction. Peritoneal carcinomatosis with dominant mass measuring 4.8 cm. Multiple heterogeneously enhancing hepatic lesions most concerning for metastatic disease. Abdominal and pelvic ascites. Pulmonary nodules the largest measuring 1.2 cm. Given abdominal pelvic findings, there concerning for metastatic disease. Dictated by: Lola Damico M.D. on 02/03/2022 at 16:23 Approved by: Lola Damico M.D. on 02/03/2022 at 16:29
[2022-02-03] MEDS: SODIUM CHLORIDE 0.9% 1315.42 ML IV (15:32)
[2022-02-03 15:34] LABS: Add Manual Diff / Slide Review NO; Basophils Absolute Auto 100 /uL (0-100); Basophils Percent Auto 0.4 % (0-2); Eosinophils Absolute Auto 200 /uL (0-450); Eosinophils Percent Auto 1.2 % (2-4); Hematocrit 34.9 % (36-46); Hemoglobin 11.3 g/dL (12.0-16.0); Lymphocytes Absolute Auto 800 /uL (1100-4500); Lymphocytes Percent Auto 5.6 % (25-40); Mean Corpuscular HGB Conc 32.5 % (30-36); Mean Corpuscular Hemoglobin 31.7 PG (26-34); Mean Corpuscular Volume 97.6 fL (80-100); Monocytes Absolute Auto 1400 /uL (0-900); Monocytes Percent Auto 10.2 % (3-14); Neutrophils Absolute Auto 11500 /uL (1500-7000); Neutrophils Percent Auto 82.6 % (50-75); Platelet Count 491 X10^3/uL (150-400); Red Blood Cell Count 3.58 X10^6/uL (4.0-5.2)
[2022-02-03 15:36] LABS: INR 1.5 (0.9-1.3); Prothrombin Time 17.8 SECONDS (10.1-12.7)
[2022-02-03 15:39] LABS: Lactate (Lactic Acid) 0.9 mmol/L (0.7-2.1)
[2022-02-03 15:40] LABS: Alanine Aminotransferase 18 IU/L (<35); Alkaline Phosphatase 114 U/L (38-126); Aspartate Aminotransferase 28 IU/L (14-36); BUN Creatinine Ratio 47.6 (6-22); Bilirubin Total 0.6 mg/dL (0.2-1.3); Blood Urea Nitrogen 80 mg/dL (7-17); Calcium 9.2 mg/dL (8.4-10.2); Carbon Dioxide 20 mmol/L (22-32); Chloride 101 mmol/L (98-107); Estimated Glomerular Filt Rate 34 mL/min (>60); Globulin 3.1 g/dL (1.7-4.1); Glucose 127 mg/dL (80-110); HEMOLYSIS < 15 (0-50); Lipase 53 U/L (23-300); Potassium 4.7 mmol/L (3.4-5.1); Sodium 132 mmol/L (137-145); Total Protein 6.1 g/dL (6.3-8.2)
[2022-02-03] MEDS: PIPERACILLIN/TAZO 4.5 GM in SODIUM CHLORIDE 0.9% 100 ML IV (16:58)
--- NOTE | 2022-02-03 17:09 | DI.RAD.S_ITS ---
PROCEDURE: XR CHEST 1V INDICATIONS: wbc TECHNIQUE: One view of the chest was acquired. COMPARISON: Located Within [facility], CT, CT ABDOMEN PELVIS W CON, 02/03/2022, 15:54. FINDINGS: Surgical changes and devices: Port-A-Cath in the right chest with the tip projecting to the atrial caval junction. Lungs and pleura: Mild right hemidiaphragm elevation. Lungs are clear. No pleural effusions or pneumothorax. Mediastinum: Mediastinal contours appear normal. Heart size is normal. Bones and chest wall: No suspicious bony lesions. Overlying soft tissues appear unremarkable. IMPRESSION: No acute cardiopulmonary disease. Dictated by: Patrick Mauricio M.D. on 02/03/2022 at 17:47 Approved by: Patrick Mauricio M.D. on 02/03/2022 at 17:48
[2022-02-03 17:11] LABS: Procalcitonin 1.69 ng/mL (<0.5)
[2022-02-03 17:28] LABS: RBC Urine 0-1/HPF (0-5/HPF); WBC Urine 1-5/HPF (0-5/HPF)
[2022-02-03 17:29] LABS: Bacteria Urine None Seen; Culture Indicated Urine Cult Not Indicated; Hyaline Casts Urine 1-5/LPF; Squamous Epithelial Cell Urine 0-1 /HPF (0-5/HPF)
[2022-02-03 17:56] LABS: Influenza A - CEPHEID Flu A NEGATIVE (NEGATIVE); Influenza B - CEPHEID Flu B NEGATIVE (NEGATIVE); Respiratory Syncytial Virus Negative (Negative)
[2022-02-03] MEDS: ACETAMINOPHEN 325 MG TABLET 650 MG PO (18:03)
[2022-02-03 18:10] LABS: Magnesium 2.5 mg/dL (1.6-2.3)
[2022-02-03 18:21] LABS: COVID-19 CEPHEID 4-PLEX PCR Negative (Negative)
--- NOTE | 2022-02-03 18:32 | PC.NURSE ---
Patient transported to 217 in stretcher, assisted with ambulation to the bathroom and back to bed. Pt visitor at bedside. Notified main desk and Flo NEAL pt is in room.
[2022-02-03] MEDS: SODIUM CHLORIDE 0.9% 1,000 ML 100 ML IV (20:31)
[2022-02-03] MEDS: VANCOMYCIN 2,000 MG/400 ML PIGGYBACK 200 MG IV (20:41)
--- NOTE | 2022-02-03 22:24 | P.HP_ITS ---
History of Present Illness History of Present Illness Date Patient Seen: 02/03/22 Time Patient Seen: 22:30 Chief complaint: Endometrial cancer, NonHodgkins lymphoma, ABD pain Narrative: Ms. Lisa is a 66W with PMH endometrial cancer, follicular lymphoma, HTN, DVT w ho presents to the hospital with worsening abdominal pain. She notes that she gets discomfort after eating food. This has worsened especially within the last week. She has intermittent diarrhea. No nausea, vomiting. No dysuria. No cough or shortness of breath. Her pain is in the upper abdomen and down the flank. She has not had a fever. She has known cancer and been on treatment for 2 years. She is apparently about to start new treatment scheduled for tomorrow. She has a known large mass near t he ascending colon that is not able to be resected, and she has known liver mets, and significant peritoneal carcinomatosis. She is aware that her cancer is not curable. She has a right chest port and has no erythema or pain there. She has a extruding tumor in her abdomen that has intermittent drainage, but is not painful currently. In the ED workup was done, vitals notable for hypotension with blood pressures systolic in the 70s. Labs notable for WBC 14, hgb 11.3, plts 491, BUN 80, creatinine 1.68. Lactate 0.9. Procal 1.69. UA negative. Flu, COVID, RSV negative. Chest xray negative. Ct abdomen/pelvis shows large mass near ascending colon, peritoneal carcinomatosis, heptatic metastatsis, ascites. Patient History Medical History Actinic keratosis due to exposure to sunlight BMI 45.0-49.9, adult Diabetes Endometrial cancer HTN (hypertension) Lymphocytopenia Non-Hodgkins lymphoma Right arm pain Screening for breast cancer Transaminitis Vitamin D deficiency Surgical History S/P tonsillectomy and adenoidectomy Family & Social History Family History Father Diabetes mellitus Mother CAD (coronary artery disease) Social History: household members none Safety & Behavioral: Feels Safe in Current Yes Environment Been Physically Hurt or No Threatened By a Person Tobacco & Substance use: Smoking Status Never smoker alcohol intake current alcohol intake frequency holiday/special occasion Substance Use Type does not use Meds Home Medications and Allergies Home Medications Medication Instructions Recorded Confirmed Type apixaban 5 mg tablet (Eliquis) 5 mg PO BID 10/29/21 02/03/22 History lisinopril 10 mg tablet 20 mg PO DAILY 10/29/21 02/03/22 History magnesium oxide 400 mg PO BID 10/29/21 02/03/22 History sennosides 8.6 mg capsule (senna) 8.6 mg PO DAILY PRN Constipation 10/29/21 02/03/22 History Allergies Allergy/AdvReac Type Severity Reaction Status Date / Time No Known Drug Allergies Allergy Verified 02/03/22 12:21 Review of Systems Review of Systems Narrative: 14 systems reviewed and negative aside from what is noted in HPI Exam Vital Signs (past 8 hours): - 02/03/22 17:30 02/03/22 17:30 02/03/22 17:40 Temperature Pulse Rate 71 Respiratory Rate 19 Blood Pressure 104/56 L 102/57 L Pulse Oximetry 99 Oxygen Delivery Method Room Air Oxygen Flow Rate 02/03/22 17:40 02/03/22 17:50 02/03/22 17:50 Temperature Pulse Rate 71 71 Respiratory Rate 21 23 Blood Pressure 101/51 L Pulse Oximetry 100 100 Oxygen Delivery Method Room Air Oxygen Flow Rate 02/03/22 18:00 02/03/22 18:00 02/03/22 18:00 Temperature 97.4 F L Pulse Rate 70 80 Respiratory Rate 23 14 Blood Pressure 99/52 L 98/62 Pulse Oximetry 100 98 Oxygen Delivery Method Room Air Oxygen Flow Rate 0 02/04/22 00:00 Temperature 96.8 F L Pulse Rate 75 Respiratory Rate 17 Blood Pressure 95/45 L Pulse Oximetry 96 Oxygen Delivery Method Oxygen Flow Rate 0 Oxygen Delivery Method Room Air Oxygen Flow Rate 0 Narrative Exam Narrative: GEN: no acute distress HEENT: moist mucous membranes, PERRL NECK: trachea midline, no JVD CHEST: right port with no erythema or drainage PULM: clear bilaterally ABD: hyperpigmented nodular protuding mass with no erythema or drainage or pain, palpable mass, no tenderness, no reboun/guarding EXT: warm and well perfused with no edema NEURO: awake, alert, oriented, with no focal deficits Objective Labs Result Diagrams: 02/03/22 15:20 02/03/22 15:20 Labs: Laboratory Results - last 24 hr 02/03/22 02/03/22 02/03/22 15:20 15:20 15:20 WBC 14.0 H RBC 3.58 L Hgb 11.3 L Hct 34.9 L MCV 97.6 MCH 31.7 MCHC 32.5 RDW 15.0 H Plt Count 491 H Neut % (Auto) 82.6 H Lymph % (Auto) 5.[address] % (Auto) 10.2 Eos % (Auto) 1.2 L Baso % (Auto) 0.4 Neut # (Auto) 83109 H Lymph # (Auto) [address] [place] # (Auto) 1400 H Eos # (Auto) 200 Baso # (Auto) 100 PT 17.8 H INR 1.5 H Sodium 132 L Potassium 4.7 Chloride 101 Carbon Dioxide 20 L BUN 80 H Creatinine 1.68 H Estimated GFR 34 L BUN/Creatinine Ratio 47.6 H Glucose 127 H Lactate Calcium 9.2 Magnesium Total Bilirubin 0.6 AST 28 ALT 18 Alkaline Phosphatase 114 Total Protein 6.1 L Albumin 3.0 L Globulin 3.1 Albumin/Globulin Ratio 1.0 Lipase 53 Procalcitonin Urine RBC Urine WBC Ur Squamous Epith Cells Urine Bacteria Hyaline Casts Ur Culture Indicated? SARS-CoV-2 (PCR) Influenza A (RT-PCR) Influenza B (RT-PCR) RSV (PCR) Blood Type Antibody Screen 02/03/22 02/03/22 02/03/22 15:20 15:20 15:20 WBC RBC Hgb Hct MCV MCH MCHC RDW Plt Count Neut % (Auto) Lymph % (Auto) [place] % (Auto) Eos % (Auto) Baso % (Auto) Neut # (Auto) Lymph # (Auto) [place] # (Auto) Eos # (Auto) Baso # (Auto) PT INR Sodium Potassium Chloride Carbon Dioxide BUN Creatinine Estimated GFR BUN/Creatinine Ratio Glucose Lactate 0.9 Calcium Magnesium Total Bilirubin AST ALT Alkaline Phosphatase Total Protein Albumin Globulin Albumin/Globulin Ratio Lipase Procalcitonin 1.69 H Urine RBC Urine WBC Ur Squamous Epith Cells Urine Bacteria Hyaline Casts Ur Culture Indicated? SARS-CoV-2 (PCR) Influenza A (RT-PCR) Influenza B (RT-PCR) RSV (PCR) Blood Type O Positive Antibody Screen Negative 02/03/22 02/03/2202/03/22 15:20 16:35 16:57 WBC RBC Hgb Hct MCV MCH MCHC RDW Plt Count Neut % (Auto) Lymph % (Auto) [place] % (Auto) Eos % (Auto) Baso % (Auto) Neut # (Auto) Lymph # (Auto) [place] # (Auto) Eos # (Auto) Baso # (Auto) PT INR Sodium Potassium Chloride Carbon Dioxide BUN Creatinine Estimated GFR BUN/Creatinine Ratio Glucose Lactate Calcium Magnesium 2.5 H Total Bilirubin AST ALT Alkaline Phosphatase Total Protein Albumin Globulin Albumin/Globulin Ratio Lipase Procalcitonin Urine RBC 0-1/hpf Urine WBC 1-5/hpf Ur Squamous Epith Cells 0-1 /hpf Urine Bacteria None seen Hyaline Casts 1-5/lpf Ur Culture Indicated? Cult not indicated SARS-CoV-2 (PCR) Negative Influenza A (RT-PCR) Flu a negative Influenza B (RT-PCR) Flu b negative RSV (PCR) Negative Blood Type Antibody Screen Assessment & Plan Assessment & Plan narrative: 1. Hypotension, SIRS positive -etiology is probable bacterial infection -has elevated WBC, procalcitonin -CT is difficult to interpret given cancer diagnosis and burden, but certainly could have infected ascites, CT does not note colitis -port site, and protruding abdominal mass do not appear grossly infected -chest xray, urine, rsv, covid, flu negative -blood cultures pending -continue IV fluids prn -continue vancomycin/zosyn for infection -if has continued diarrhea will send cultures, c diff 2. VINCENT -suspect hypovolemia secondary to infection, diarrhea -has been resuscitated with IVF boluses since arrival in ED -no evidence of hydronephrosis on imaging -follow creatinine closely 3. History of DVT at port -continue apixaban 4. Hypertension -hold lisinopril due to VINCENT/hypotension 5. Metastatic follicular lymphoma, endometrial cancer -in between two treatment -chemo on hold while infected -patient understands cancer is not curable CODE: DNR/DNI Proxy: Ana Cristina Topete, sister I have utilized all available resources to reconcile the patient's home medications. Time Spent With Patient Critical Care time: I spent a total of [] minutes of critical care time on this patient's care today; this time is exclusive of procedural time. Quality VTE Deep Vein Thrombosis/Pulmonary Embolism Present on Admission: No
[2022-02-03] MEDS: HYDROMORPHONE 0.5 MG INJ IV (22:35)
[2022-02-03] MEDS: PIPERACILLIN/TAZO 3.375 GM in SODIUM CHLORIDE 0.9% 100 ML IV (23:27)
[2022-02-04] VITALS: BP 95/45; PULSE 75; RESP 17; TEMP 36; O2SAT 96
[2022-02-04] MEDS: HYDROMORPHONE 0.5 MG INJ IV (03:40)
[2022-02-04 06:00] VITALS: BP 102/48; PULSE 83; RESP 18; TEMP 36.4; O2SAT 95
[2022-02-04] MEDS: ACETAMINOPHEN 325 MG TABLET 975 MG PO ×2 (06:00→19:15)
[2022-02-04 06:59] LABS: BUN Creatinine Ratio 42.4 (6-22); Blood Urea Nitrogen 64 mg/dL (7-17); Calcium 8.6 mg/dL (8.4-10.2); Carbon Dioxide 19 mmol/L (22-32); Chloride 107 mmol/L (98-107); Estimated Glomerular Filt Rate 38 mL/min (>60); Glucose 110 mg/dL (80-110); HEMOLYSIS < 15 (0-50); Potassium 4.7 mmol/L (3.4-5.1); Sodium 132 mmol/L (137-145)
[2022-02-04 07:01] LABS: Add Manual Diff / Slide Review NO; Basophils Absolute Auto 0 /uL (0-100); Basophils Percent Auto 0.3 % (0-2); Eosinophils Absolute Auto 200 /uL (0-450); Eosinophils Percent Auto 1.3 % (2-4); Hematocrit 32.4 % (36-46); Hemoglobin 10.7 g/dL (12.0-16.0); Lymphocytes Absolute Auto 600 /uL (1100-4500); Lymphocytes Percent Auto 3.9 % (25-40); Mean Corpuscular HGB Conc 32.9 % (30-36); Mean Corpuscular Hemoglobin 32.2 PG (26-34); Mean Corpuscular Volume 97.8 fL (80-100); Monocytes Absolute Auto 1500 /uL (0-900); Monocytes Percent Auto 10.5 % (3-14); Neutrophils Absolute Auto 12200 /uL (1500-7000); Platelet Count 496 X10^3/uL (150-400); Red Blood Cell Count 3.31 X10^6/uL (4.0-5.2); Red Cell Distribution Width 14.7 % (11.6-14.8); White Blood Cell Count 14.5 X10^3/uL (4.5-11.0)
[2022-02-04] MEDS: APIXABAN 5 MG TABLET PO ×2 (09:23→21:00)
[2022-02-04] MEDS: OXYCODONE IR 5 MG TABLET PO ×3 (11:51→21:59)
[2022-02-04] MEDS: PIPERACILLIN/TAZO 3.375 GM in SODIUM CHLORIDE 0.9% 100 ML IV ×2 (11:52→19:09)
--- NOTE | 2022-02-04 12:43 | CM.DANOTE ---
DCP: Case received, EMR reviewed and met with patient. Friend, Ana Cristina, was at bedside. Introduced self and role. Was able to obtain information regarding patient's baseline activity status at home prior to hospitalization. DCP assessment completed with information currently available. Patient is a 66 year old female who admitted yesterday afternoon to the care of the hospitalist team. PCP: Dr. Lozano. Payer: confirmed: [employer]. Patient came to the hospital via private vehicle secondary to having increased abdominal pain. Patient has history of non-hodgkin's lymphoma, and is in between chemotherapy treatments. Patient had a temp of 100. Patient goes to [facility] for her chemo and immunotherapy. Patient was diagnosed with hypotension, with etiology of probable bacterial infection, and elevated WBC. Patient also has a portacath. Met with patient and friend, Ana Cristina Topete, who is at bedside. 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 She lives alone, but has her friend,Bartolo Gaona, who stays with her and her friend, Ana Cristina. Patient only drives short distances. Her friend drives her to [place]. P: DCP to continue to follow. Plan is home when stable, did discuss home health as an option with patient if she needs it. Peyton Newell RN/Urology Surgeon Discharge Planning/Care Management CM Discharge Assessment Start: 02/04/22 12:41 Freq: Status: Active Protocol: Document 02/04/22 12:41 (Rec: 02/04/22 12:43 [id number]) Discharge Planning Assessment Assigned Software Quality Test Engineer Peyton Newell RN/Urology Surgeon Advance Directives? Yes Advance Directives on File No History Provided By Patient,Medical Record Household Members none Type of transporation used prior to Drives own vehicle admit Comment Her friend drives her to her oncology appointments in [place] Independent with ADL's Yes Is patient alert and oriented? Yes Caregiver for Another No Discharge Plan Home Transportation Arrangement Friend Referrals Initiated None needed Whiteboard Updated in Patient Room with Yes name and ext. # of Software Quality Test Engineer Review Status In Process Next Review Type Continued Stay Review
[2022-02-04 17:12] VITALS: BP 111/57; PULSE 78; RESP 18; TEMP 36.9; O2SAT 96
[2022-02-04 17:15] VITALS: BP 111/57; PULSE 78
--- NOTE | 2022-02-04 18:14 | P.PN_ITS ---
Subjective Subjective Date Patient Seen: 02/04/22 Interval history: 66-year-old female with metastatic endometrial cancer, follicular lymphoma, hypertension, and prior DVT who was admitted last evening with worsening abdominal pain. Patient reports she was diagnosed with endometrial cancer approximately 2 years ago. At the time of her hysterectomy, her gynecologic oncologist also iden tified a large mass adherent to her ascending colon, which was ultimately found to be lymphoma. Patient states for 6 months she did well after receiving chemotherapy for her endometrial cancer. She then received some treatment for her lymphoma. However she then had progression of her endometrial cancer for which she has been on treatment since that time. She states that her lymphoma has not been actively treated as a result. Most recently, she has been on pembrolizumab and lenvatinib for her endometrial cancer. She did have elevated blood pressure secondary to lenvatinib and was placed on lisinopril. She underwent a CT scan in December which revealed progression of a left axillary node increasing from 1.2-1.9 cm. A right lower lung lobe lesion and had become cavitary and was up to 1 cm. She also had a new left lower lobe 0.3 cm metastasis. She had a new liver metastasis during 2.8 x 2.2 at the dome of the liver. She also had 2 smaller right hepatic lobe lesions. She had an increase in retroperitoneal lymphadenopathy increasing from 0.7 cm to 1 cm. Her ascending colon mass had increased from 5.9 x 4.6-6.8 x 6.7. She had increasing peritoneal caking and carcinomatosis with the largest measuring 4.6 x 2.7 in the right upper quadrant. Plans were to discontinue the lenvatinib and to start Taxol today. However she was admitted to the hospital with worsening dyspnea, abdominal pain, and weakness. She states prior to now she had really not had much in the way of cancer symptoms and had tolerated everything very well. Now she gets dyspneic walking across the room. She also notes that she has more challenge bending over as that appears to be more difficult for her.She feels as though her abdominal girth has increased recently. Exam Vital Signs (past 8 hours): - 02/04/22 17:15 Pulse Rate 78 Blood Pressure 111/57 L Oxygen Delivery Method Room Air Oxygen Flow Rate 0 Narrative Exam Narrative: GEN: Very pleasant chronically ill-appearing pale middle-aged female, Alert and oriented x 3, NAD HEENT:NC, Face symmetric CHEST: Respiratory excursions symmetric, CTAB CV: RRR, no M/R/G ABD: Soft, large firm masses palpable within both the right lower abdomen and mid abdomen, large ventral hernia, she has a small area of erosion around her umbilicus, bowel tones are present in all 4 quadrants, mild diffuse tenderness but no peritoneal signs EXTR: warm, well perfused, no C/C/E SKIN: warm and dry, no rash NEURO: Alert and oriented x 3, nonfocal Objective Labs Result Diagrams: 02/04/22 06:40 02/04/22 06:40 Labs: Laboratory Results - last 24 hr 02/03/22 02/04/22 02/04/22 16:57 06:40 06:40 WBC 14.5 H RBC 3.31 L Hgb 10.7 L Hct 32.4 L MCV 97.8 MCH 32.2 MCHC 32.9 RDW 14.7 Plt Count 496 H Neut % (Auto) 84.0 H Lymph % (Auto) 3.9 L [place] % (Auto) 10.5 Eos % (Auto) 1.3 L Baso % (Auto) 0.3 Neut # (Auto) 02413 H Lymph # (Auto) 600 L [place] # (Auto) 1500 H Eos # (Auto) 200 Baso # (Auto) 0 Sodium 132 L Potassium 4.7 Chloride 107 Carbon Dioxide 19 L BUN 64 H Creatinine 1.51 H Estimated GFR 38 L BUN/Creatinine Ratio 42.4 H Glucose 110 Calcium 8.6 SARS-CoV-2 (PCR) Negative Influenza A (RT-PCR) Flu a negative Influenza B (RT-PCR) Flu b negative RSV (PCR) Negative [facility] Medical History Actinic keratosis due to exposure to sunlight BMI 45.0-49.9, adult Diabetes Endometrial cancer HTN (hypertension) Lymphocytopenia Non-Hodgkins lymphoma Right arm pain Screening for breast cancer Transaminitis Vitamin D deficiency Surgical History S/P tonsillectomy and adenoidectomy Family History Father Diabetes mellitus Mother CAD (coronary artery disease) Social History household members: none Smoking Status: Never smoker alcohol intake: current substance use type: does not use Assessment & Plan Assessment & Plan narrative: Metastatic endometrial cancer Of note, I was able to review prior CT scan in the patient's portal with the findings as listed above. She now has what appears to be an increase in metastases to the liver with now 5 nodules identified compared to the prior 3. More concerning however is a doubling of her ascending colon mass, which now measures 12.1 x 11.0 x 11.6 cm. This reflects a massive increase in tumor size in a very short time. We discussed that this is very likely the etiology for her worsening systemic symptoms. I do not think she has any peritonitis or infected ascites given her her exam being unremarkable for significant peritoneal signs. She remains on antibiotics empirically. I did attempt to contact her gynecologic oncologist, Dr. Catrachito corbin at the [facility]. Unfortunately, she was not in the office today. A message was left. I discussed with the patient the possibility that perhaps the hospitalists here can discuss on Monday with the patient's gynecological oncologist the option of getting her in to initiate the Taxol next week since she missed today. Certainly, the holiday weekend next week will cause some logistical issues. For now, the goal will be to work on better pain control. She was not getting much relief with hydromorphone. She had previously taken oxycodone with good success and this was initiated today. Lymphoma, follicular At this time, patient is followed primarily as surveillance from [facility]. She is not on any active treatment. Acute kidney injury Slightly improved down. Continuing to hold lisinopril. Will continue to monitor. Hypotension/SIRS Likely secondary to a combination of hypovolemia and continuation of lisinopril in the setting of discontinued lenvatinib. She had not had hypertension prior to being initiated on the lenvatinib. Lisinopril was added at that time. Now that the lenvatinib has been discontinued, her blood pressures have likely normalize and she no longer requires antihypertensive therapy. She does not have evidence of infection though does have some leukocytosis. My suspicion is the leukocytosis is secondary to her worsening malignancy rather than acute infection. However will continue empiric antibiotics for now. Previous DVT at port site Continues apixaban Hypertension As above Code status DNR DNI Prophylaxis Continue apixaban Disposition Continue inpatient hospitalization until pain is better controlled and further planning can be accomplished Time Spent With Patient Critical Care time: I spent a total of [] minutes of critical care time on this patient's care today; this time is exclusive of procedural time. Quality VTE Deep Vein Thrombosis/Pulmonary Embolism Present on Admission: No
[2022-02-04] MEDS: VANCOMYCIN 1,250 MG/250 ML PIGGYBACK 250 MG IV (21:00)
[2022-02-04] MEDS: VANCOMYCIN PER PHARMACY 1 REQUEST MISC (21:16)
[2022-02-04 22:28] VITALS: BP 106/52; PULSE 84; RESP 17; TEMP 36.1; O2SAT 98
[2022-02-05] MEDS: OXYCODONE IR 5 MG TABLET PO ×4 (00:45→15:30)
[2022-02-05] MEDS: SODIUM CHLORIDE 0.9% FLUSH 10 ML IV ×3 (00:45→09:13)
[2022-02-05] MEDS: PIPERACILLIN/TAZO 3.375 GM in SODIUM CHLORIDE 0.9% 100 ML IV ×3 (03:58→19:28)
--- NOTE | 2022-02-05 05:48 | P.PN_ITS ---
Subjective Subjective Interval history: 66-year-old female with metastatic endometrial cancer, follicular lymphoma, hypertension, and prior DVT who was admitted last evening with worsening abdominal pain. Patient reports she was diagnosed with endometrial cancer approximately 2 years ago.? At the time of her hysterectomy, her gynecologic oncologist also identified a large mass adherent to her ascending colon, which was ultimately found to be lymphoma.? Patient states for 6 months she did well after receiving chemotherapy for her endometrial cancer.? She then received some treatment for her lymphoma.? However she then had progression of her endometrial cancer for which she has been on treatment since that time.? She states that her lymphoma has not been actively treated as a result. Most recently, she has been on pembrolizumab and lenvatinib for her endometrial cancer.? She did have elevated blood pressure secondary to lenvatinib and was placed on lisinopril.? She underwent a CT scan in December which revealed progression of a left axillary node increasing from 1.2-1.9 cm.? A right lower lung lobe lesion and had become cavitary and was up to 1 cm.? She also had a new left lower lobe 0.3 cm metas tasis.? She had a new liver metastasis during 2.8 x 2.2 at the dome of the liver.? She also had 2 smaller right hepatic lobe lesions.? She had an increase in retroperitoneal lymphadenopathy increasing from 0.7 cm to 1 cm.? Her ascending colon mass had increased from 5.9 x 4.6-6.8 x 6.7.? She had increasing peritoneal caking and carcinomatosis with the largest measuring 4.6 x 2.7 in the right upper quadrant. Plans were to discontinue the lenvatinib and to start Taxol today.? However she was admitted to the hospital with worsening dyspnea, abdominal pain, and weakness.? She states prior to now she had really not had much in the way of cancer symptoms and had tolerated everything very well.? Now she gets dyspneic walking across the room.? She also notes that she has more challenge bending ov er as that appears to be more difficult for her.She feels as though her abdominal girth has increased recently.? Today, patient reports she continues to feel quite sedate from oxycodone. She reports relatively reduced oral fluid intake. She continues to have difficulty eating as her abdomen feels full very quickly. She also has been having heartburn. She is not had a bowel movement since the morning of February 03. Sister is at bedside taking notes during our discussion Exam Vital Signs (past 8 hours): - 02/04/22 22:28 Temperature 96.9 F L Pulse Rate 84 Respiratory Rate 17 Blood Pressure 106/52 L Pulse Oximetry 98 Oxygen Delivery Method Room Air Oxygen Flow Rate 0 Narrative Exam Narrative: GEN:? Very pleasant chronically ill-appearing pale middle-aged female, drowsy but oriented x 3, NAD HEENT:NC, Face symmetric CHEST: Respiratory excursions symmetric, CTAB CV: RRR, no M/R/G ABD: Soft, large firm masses palpable within both the right lower abdomen and mid abdomen, large ventral hernia, she has a small area of erosion around her umbilicus, bowel tones are present in all 4 quadrants, mild diffuse tenderness but no peritoneal signs EXTR: warm, well perfused, no C/C/E SKIN: warm and dry, no rash NEURO: Drowsy but oriented, nonfocal Objective Labs Result Diagrams: 02/05/22 06:55 02/05/22 06:55 Labs: Laboratory Results - last 24 hr 02/04/22 02/04/22 06:40 06:40 WBC 14.5 H RBC 3.31 L Hgb 10.7 L Hct 32.4 L MCV 97.8 MCH 32.2 MCHC 32.9 RDW 14.7 Plt Count 496 H Neut % (Auto) 84.0 H Lymph % (Auto) 3.9 L [place] % (Auto) 10.5 Eos % (Auto) 1.3 L Baso % (Auto) 0.3 Neut # (Auto) 97768 H Lymph # (Auto) 600 L [place] # (Auto) 1500 H Eos # (Auto) 200 Baso # (Auto) 0 Sodium 132 L Potassium 4.7 Chloride 107 Carbon Dioxide 19 L BUN 64 H Creatinine 1.51 H Estimated GFR 38 L BUN/Creatinine Ratio 42.4 H Glucose 110 Calcium 8.6 PFSH Medical History Actinic keratosis due to exposure to sunlight BMI 45.0-49.9, adult Diabetes Endometrial cancer HTN (hypertension) Lymphocytopenia Non-Hodgkins lymphoma Right arm pain Screening for breast cancer Transaminitis Vitamin D deficiency Surgical History S/P tonsillectomy and adenoidectomy Family History Father Diabetes mellitus Mother CAD (coronary artery disease) Social History household members: none Smoking Status: Never smoker alcohol intake: current substance use type: does not use Assessment & Plan Assessment & Plan narrative: Metastatic endometrial cancer Of note, I was able to review prior CT scan in the patient's portal with the findings as listed above.? She now has what appears to be an increase in metastases to the liver with now 5 nodules identified compared to the prior 3.? More concerning however is a doubling of her ascending colon mass, which now measures 12.1 x 11.0 x 11.6 cm.? This reflects a massive increase in tumor size in a very short time.? We discussed that this is very likely the etiology for her worsening systemic symptoms.? I do not think she has any peritonitis or infected ascites given her her exam being unremarkable for significant peritoneal signs.? She remains on antibiotics empirically.? I did attempt to contact her gynecologic oncologist, Dr. Catrachito corbin at the [facility].? Unfortunately, she was not in the office today.? A message was left.? I discussed with the patient the possibility that perhaps the hospitalists here can discuss on Monday with the patient's gynecological oncologist the option of getting her in to initiate the Taxol next week since she missed today.? Certainly, the holiday weekend next week will cause some logistical issues.? For now, the goal will be to work on better pain control.? She was not getting much relief with hydromorphone.? She had previously taken oxycodone with good success and this was initiated today. Dr. Valentine did contact me today as she was application tester. She is feeling the patient would benefit from initiating chemotherapy it however she is not optimistic the patient will be able to get an appointment before the weekend. She does state that if it were to occur the following week, it would be reasonable, as it is not urgent that she receive chemo next week. Lymphoma, follicular At this time, patient is followed primarily as surveillance from [facility].? She is not on any active treatment. Acute kidney injury Creatinine is up today to 1.85 from 1.51 yesterday. I am uncertain if this is related to some obstructive issue from tumor versus VINCENT from hypovolemia. Will start some IV fluids as she does admit to somewhat poor oral fluid intake. Will repeat labs in the morning. Hypotension/SIRS Likely secondary to a combination of hypovolemia and continuation of lisinopril in the setting of discontinued lenvatinib.? She had not had hypertension prior to being initiated on the lenvatinib.? Lisinopril was added at that time.? Now that the lenvatinib has been discontinued, her blood pressures have likely normalize and she no longer requires antihypertensive therapy.? She does not have evidence of infection though does have some leukocytosis.? My suspicion is the leukocytosis is secondary to her worsening malignancy rather than acute infection.? However will continue empiric antibiotics for now. Blood pressures have remained somewhat lower than ideal ranging from 96-109 over 39-55. Etiology of the hypotension is not entirely clear. She remains on empiric antibiotics. Again given the rapid increase in tumor in her abdomen, there is certainly risk for obstruction leading to some of her systemic symptoms. Previous DVT at port site Continues apixaban Hypertension As above Code status DNR DNI Prophylaxis Continue apixaban Disposition Continue inpatient hospitalization until pain is better controlled and further planning can be accomplished; she had received 30 mg of oxycodone in the past 24 hours, equivalent to 45 mg of morphine. She would likely tolerate fentanyl at this time. Will add a fentanyl patch 12 mcg. She feels overly sedated with 5 mg doses of oxycodone, will decrease to 2.5 mg q.2h as needed. Time Spent With Patient Critical Care time: I spent a total of [] minutes of critical care time on this patient's care today; this time is exclusive of procedural time. Quality VTE Deep Vein Thrombosis/Pulmonary Embolism Present on Admission: No
[2022-02-05 06:15] VITALS: BP 109/55; PULSE 86; RESP 17; TEMP 36.2; O2SAT 96
[2022-02-05] MEDS: ACETAMINOPHEN 325 MG TABLET 975 MG PO ×2 (06:38→15:34)
[2022-02-05 07:12] LABS: Add Manual Diff / Slide Review NO; Basophils Absolute Auto 100 /uL (0-100); Basophils Percent Auto 0.8 % (0-2); Eosinophils Absolute Auto 100 /uL (0-450); Eosinophils Percent Auto 0.8 % (2-4); Hematocrit 33.9 % (36-46); Hemoglobin 11.1 g/dL (12.0-16.0); Lymphocytes Absolute Auto 900 /uL (1100-4500); Lymphocytes Percent Auto 4.9 % (25-40); Mean Corpuscular HGB Conc 32.7 % (30-36); Mean Corpuscular Hemoglobin 31.9 PG (26-34); Mean Corpuscular Volume 97.5 fL (80-100); Monocytes Absolute Auto 2000 /uL (0-900); Monocytes Percent Auto 11.1 % (3-14); Neutrophils Absolute Auto 14500 /uL (1500-7000); Neutrophils Percent Auto 82.4 % (50-75); Platelet Count 577 X10^3/uL (150-400); Red Blood Cell Count 3.48 X10^6/uL (4.0-5.2); Red Cell Distribution Width 15.2 % (11.6-14.8); White Blood Cell Count 17.6 X10^3/uL (4.5-11.0)
[2022-02-05 07:21] LABS: BUN Creatinine Ratio 37.3 (6-22); Blood Urea Nitrogen 69 mg/dL (7-17); Calcium 8.6 mg/dL (8.4-10.2); Carbon Dioxide 16 mmol/L (22-32); Chloride 103 mmol/L (98-107); Estimated Glomerular Filt Rate 30 mL/min (>60); Glucose 122 mg/dL (80-110); HEMOLYSIS < 15 (0-50); Potassium 4.6 mmol/L (3.4-5.1); Sodium 132 mmol/L (137-145)
[2022-02-05 08:16] VITALS: BP 96/39; PULSE 84; RESP 18; TEMP 36.6; O2SAT 98
[2022-02-05] MEDS: APIXABAN 5 MG TABLET PO ×2 (09:11→20:19)
[2022-02-05 10:20] VITALS: BP 102/48; PULSE 80
[2022-02-05 14:45] VITALS: BP 101/47; PULSE 80; RESP 18; TEMP 36.5; O2SAT 99
--- NOTE | 2022-02-05 14:57 | PC.NURSE ---
Pt med w/oxy for discomfort at 1040; with good relief. Right chest port intact/patent. Assisted to BR w/o incidence. Call light w/in reach, pt calls appropriately for needs. Continue w/plan of care.
[2022-02-05] MEDS: SODIUM CHLORIDE 0.9% 1,000 ML 100 ML IV (17:00)
[2022-02-05] MEDS: fentaNYL 12 MCG/PATCH TOP (17:01)
[2022-02-05 18:00] VITALS: RESP 18
[2022-02-05] MEDS: SENNOSIDES 8.6 MG TABLET PO (20:19)
[2022-02-05] MEDS: OXYCODONE IR 5 MG TABLET 2.5 MG PO (20:19)
[2022-02-05 21:30] VITALS: BP 83/43; PULSE 82; RESP 18; TEMP 37.1; O2SAT 96
[2022-02-05] MEDS: VANCOMYCIN 1,250 MG/250 ML PIGGYBACK 250 MG IV (22:05)
[2022-02-05] MEDS: SODIUM CHLORIDE 0.9% 1,000 ML 1000 ML IV (22:30)
[2022-02-05] MEDS: ACETAMINOPHEN 325 MG TABLET 650 MG PO (22:30)
[2022-02-06] VITALS: BP 102/58; PULSE 84; RESP 16; TEMP 36.5; O2SAT 95
[2022-02-06 05:24] LABS: Add Manual Diff / Slide Review NO; Basophils Absolute Auto 0 /uL (0-100); Eosinophils Absolute Auto 200 /uL (0-450); Eosinophils Percent Auto 1.6 % (2-4); Hematocrit 35.2 % (36-46); Hemoglobin 11.5 g/dL (12.0-16.0); Lymphocytes Absolute Auto 600 /uL (1100-4500); Lymphocytes Percent Auto 4.3 % (25-40); Mean Corpuscular HGB Conc 32.8 % (30-36); Mean Corpuscular Hemoglobin 31.8 PG (26-34); Mean Corpuscular Volume 97.2 fL (80-100); Monocytes Absolute Auto 1200 /uL (0-900); Monocytes Percent Auto 8.6 % (3-14); Neutrophils Absolute Auto 12100 /uL (1500-7000); Neutrophils Percent Auto 85.5 % (50-75); Platelet Count 476 X10^3/uL (150-400); Red Blood Cell Count 3.62 X10^6/uL (4.0-5.2); Red Cell Distribution Width 15.3 % (11.6-14.8); White Blood Cell Count 14.2 X10^3/uL (4.5-11.0)
--- NOTE | 2022-02-06 05:39 | P.PN_ITS ---
Subjective Subjective Interval history: 66-year-old female with metastatic endometrial cancer, follicular lymphoma, hypertension, and prior DVT who was admitted last evening with worsening abdominal pain. Patient reports she was diagnosed with endometrial cancer approximately 2 years ago.? At the time of her hysterectomy, her gynecologic oncologist also identified a large mass adherent to her ascending colon, which was ultimately found to be lymphoma.? Patient states for 6 months she did well after receiving chemotherapy for her endometrial cancer.? She then received some treatment for her lymphoma.? However she then had progression of her endometrial cancer for which she has been on treatment since that time.? She states that her lymphoma has not been actively treated as a result. Most recently, she has been on pembrolizumab and lenvatinib for her endometrial cancer.? She did have elevated blood pressure secondary to lenvatinib and was placed on lisinopril.? She underwent a CT scan in December which revealed progression of a left axillary node increasing from 1.2-1.9 cm.? A right lower lung lobe lesion and had become cavitary and was up to 1 cm.? She also had a new left lower lobe 0.3 cm metas tasis.? She had a new liver metastasis during 2.8 x 2.2 at the dome of the liver.? She also had 2 smaller right hepatic lobe lesions.? She had an increase in retroperitoneal lymphadenopathy increasing from 0.7 cm to 1 cm.? Her ascending colon mass had increased from 5.9 x 4.6-6.8 x 6.7.? She had increasing peritoneal caking and carcinomatosis with the largest measuring 4.6 x 2.7 in the right upper quadrant. Plans were to discontinue the lenvatinib and to start Taxol today.? However she was admitted to the hospital with worsening dyspnea, abdominal pain, and weakness.? She states prior to now she had really not had much in the way of cancer symptoms and had tolerated everything very well.? Now she gets dyspneic walking across the room.? She also notes that she has more challenge bending ov er as that appears to be more difficult for her.She feels as though her abdominal girth has increased recently.? Yesterday, patient reports she continues to feel quite sedate from oxycodone.? She reported relatively reduced oral fluid intake.? She continued to have difficulty eating as her abdomen feels full very quickly.? She complained of having heartburn.? She as not had a bowel movement since the morning of February 03. Today, reports she is feeling a bit better. She states that she is not feeling nearly as tired and low energy as she was yesterday. Her roommate is at bedside. Patient was able to drink about 1100 cc of fluid yesterday. She has not yet had a bowel movement but feels as though she will soon. Exam Vital Signs (past 8 hours): - 02/06/22 00:00 Temperature 97.7 F Pulse Rate 84 Respiratory Rate 16 Blood Pressure 102/58 L Pulse Oximetry 95 Oxygen Flow Rate 0 Oxygen Delivery Method Room Air Oxygen Flow Rate 0 Narrative Exam Narrative: GEN:? Very pleasant chronically ill-appearing pale middle-aged female, alert and oriented x 3, smiling today, NAD HEENT:NC, Face symmetric CHEST: Respiratory excursions symmetric, CTAB CV: RRR, no M/R/G ABD: Soft, large firm masses palpable within both the right lower abdomen and mid abdomen, large ventral hernia, she has a small area of erosion around her umbilicus as well as obvious tumor growth, bowel tones are present in all 4 quadrants, mild diffuse tenderness but no peritoneal signs EXTR: warm, well perfused, no C/C/E SKIN: warm and dry, no rash NEURO:? Alert and oriented, nonfocal Objective Labs Result Diagrams: 02/06/22 05:10 02/06/22 05:10 Labs: Laboratory Results - last 24 hr 02/05/22 02/05/22 02/06/22 06:55 06:55 05:10 WBC 17.6 H 14.2 H RBC 3.48 L 3.62 L Hgb 11.1 L 11.5 L Hct 33.9 L 35.2 L MCV 97.5 97.2 MCH 31.9 31.8 MCHC 32.7 32.8 RDW 15.2 H 15.3 H Plt Count 577 H 476 H Neut % (Auto) 82.4 H 85.5 H Lymph % (Auto) 4.9 L 4.3 L [place] % (Auto) 11.1 8.6 Eos % (Auto) 0.8 L 1.6 L Baso % (Auto) 0.8 0.0 Neut # (Auto) 05664 H 01434 H Lymph # (Auto) 900 L 600 L [place] # (Auto) 2000 H 1200 H Eos # (Auto) 100 200 Baso # (Auto) 100 0 Sodium 132 L Potassium 4.6 Chloride 103 Carbon Dioxide 16 L BUN 69 H Creatinine 1.85 H Estimated GFR 30 L BUN/Creatinine Ratio 37.3 H Glucose 122 H Calcium 8.6 PFSH Medical History Actinic keratosis due to exposure to sunlight BMI 45.0-49.9, adult Diabetes Endometrial cancer HTN (hypertension) Lymphocytopenia Non-Hodgkins lymphoma Right arm pain Screening for breast cancer Transaminitis Vitamin D deficiency Surgical History S/P tonsillectomy and adenoidectomy Family History Father Diabetes mellitus Mother CAD (coronary artery disease) Social History household members: none Smoking Status: Never smoker alcohol intake: current substance use type: does not use Assessment & Plan Assessment & Plan narrative: Metastatic endometrial cancer CT imaging done here revealed doubling of her ascending colon mass. Please see yesterday and prior days notes regarding the specific changes in size. I was able to speak with Dr. Valentine, gynecologic oncologist at the [facility]. She will be working tomorrow to get patient rescheduled for Taxol infusion possibly this week, but if not this week the patient is scheduled for February 14. I patient's cultures remain negative. She really has not had any evidence of infection. Suspect her leukocytosis was secondary to disease progression rather than infection. Pain is better controlled with 12 mcg fentanyl patch and 2.5 from oxycodone as well as 975 mg of Tylenol t.i.d.. Lymphoma, follicular At this time, patient is followed primarily as surveillance from [facility].? She is not on any active treatment. Acute kidney injury Creatinine continues to increase a bit each day, up yesterday and is now 2.35. Suspect her VINCENT is from [facility]. She did come in with some mild VINCENT, underwent a co ntrast CT in the setting of hypotension, lisinopril use on an outpatient basis, and poor overall hydration. Continuing IV fluids. I have encouraged continued increase in her p.o. fluid intake. I anticipate her renal function will begin to improve. I did review her CT today and there was no evidence of external compression of the kidneys or ureters from tumor. Hypotension/SIRS Likely secondary to a combination of hypovolemia and continuation of lisinopril in the setting of discontinued lenvatinib.? She had not had hypertension prior to being initiated on the lenvatinib.? Lisinopril was added at that time.? Now that the lenvatinib has been discontinued, her blood pressures have likely nor malize and she no longer requires antihypertensive therapy.? She does not have evidence of infection though does have some leukocytosis.? Which is felt to be related to disease progression/reactive leukocytosis. Patient has no systemic symptoms or concerns for illness. As noted, cultures remain negative. She has been essentially bed-bound since admission and I suspect if we increase her activity level, her blood pressures will likely come up some as well.. Previous DVT at port site Continues apixaban Hypertension As above Code status DNR DNI Prophylaxis Continue apixaban Disposition ET did evaluate the patient today since she was feeling better and reports she did quite well. Plan will be for discharging home with home health PT and OT as well as close follow-up with Dr. Valentine, her gynecologic oncologist. Time Spent With Patient Critical Care time: I spent a total of [] minutes of critical care time on this patient's care today; this time is exclusive of procedural time. Quality VTE Deep Vein Thrombosis/Pulmonary Embolism Present on Admission: No
[2022-02-06 05:40] LABS: BUN Creatinine Ratio 30.6 (6-22); Blood Urea Nitrogen 72 mg/dL (7-17); Calcium 7.8 mg/dL (8.4-10.2); Carbon Dioxide 15 mmol/L (22-32); Chloride 103 mmol/L (98-107); Estimated Glomerular Filt Rate 23 mL/min (>60); Glucose 97 mg/dL (80-110); HEMOLYSIS < 15 (0-50); Potassium 4.6 mmol/L (3.4-5.1); Sodium 130 mmol/L (137-145)
[2022-02-06 06:00] VITALS: BP 102/62; PULSE 89; RESP 16; TEMP 36.7; O2SAT 98
[2022-02-06] MEDS: ACETAMINOPHEN 325 MG TABLET 975 MG PO ×3 (06:31→22:10)
[2022-02-06] MEDS: SODIUM CHLORIDE 0.9% 1,000 ML 100 ML IV ×3 (06:33→18:06)
[2022-02-06] MEDS: OXYCODONE IR 5 MG TABLET 2.5 MG PO ×2 (08:19→18:06)
[2022-02-06] MEDS: FAMOTIDINE 20 MG TABLET PO (08:19)
[2022-02-06] MEDS: SENNOSIDES 8.6 MG TABLET PO ×3 (08:19→22:10)
[2022-02-06] MEDS: APIXABAN 5 MG TABLET PO ×2 (08:20→22:09)
--- NOTE | 2022-02-06 10:27 | PC.NURSE ---
Addendum entered by Sandi Eagle R.N. 02/06/22 14:55: Patient given tylenol a couple of hours ago and she states that she perfers this for her pain management. This is available every 8 hours. Patient is awake and visting with her sister. Original Note: Assess- Patient is alert and oriented x4, she complained of 6/10 pain and was given 2.5mg of po oxycodone. She states that this has relieved her discomfort. Patient has a darian cath with ivf infusing. She also has a wound in the lower middle of her abdomen, this is a tumor that is starting to protrude out of her skin. Dressing in place. Sister in room, and she is helpful with care.
[2022-02-06 10:50] VITALS: BP 95/72; PULSE 77; RESP 16; TEMP 36.3; O2SAT 97
[2022-02-06 14:25] VITALS: BP 92/50; PULSE 81; RESP 18; TEMP 36.5; O2SAT 96
--- NOTE | 2022-02-06 16:45 | PT.IIE ---
Current Diagnoses Hypotension, unspecified (02/03/22) Surgical History (Last Reviewed 02/04/22 @ 01:24 by Del Cruz MD) S/P tonsillectomy and adenoidectomy Medical History (Last Reviewed 02/04/22 @ 01:24 by Del Cruz MD) Actinic keratosis due to exposure to sunlight BMI 45.0-49.9, adult Diabetes Endometrial cancer HTN (hypertension) Lymphocytopenia Non-Hodgkins lymphoma Right arm pain Screening for breast cancer Transaminitis Vitamin D deficiency Physical Therapy Inpatient Evaluation/Re-Eval M1 PT/OT-IP Prior Functional Status Start: 02/06/22 16:10 Freq: NEEDED Status: Active Protocol: Document 02/06/22 16:45 AW (Rec: 02/06/22 17:52 AW [id number]) Medical Review Prior Functional Status Medical History Reviewed Yes Communication WNL. Pt is an effective verbal communicator. Mobility and Gait Pt walks without device. She reports she is heavily sedentary but is able to walk around her house and do occasional shopping trips. She has a history of back pain which tends to limit her walking tolerance. No falls in over 1.5 years. Activities of Daily Living and IADL's Modified independent but with increasing difficulty. She has found it more challenging to reach forward and toward the floor recently due to abdominal pain. She does drive . Social History Household Members none,other Living Arrangements House Number of Floors (Floors) One Floor Number of Stairs To Enter/Railing? 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 She lives with a roommate who is able to provide some assist. She has a sister who lives locally and drives her to [place] for treatment. M2 PT-IP Current Condition Start: 02/06/22 16:10 Freq: NEEDED Status: Active Protocol: Document 02/06/22 16:45 AW (Rec: 02/06/22 17:52 AW [id number]) Physical Therapy Current Condition Current Condition Evaluation Date 02/06/22 Treatment Diagnosis metastatic endometrial cancer; impaired mobility Onset Date 01/24/22 M3 PT-IP Subjective Start: 02/06/22 16:10 Freq: NEEDED Status: Active Protocol: Document 02/06/22 16:45 AW (Rec: 02/06/22 17:52 AW [id number]) Subjective Physical Therapy Visit Type Type Initial Evaluation Visit Start Time 16:18 Visit Stop Time 16:45 Total Visit Minutes 27 Notes Pt's roommate was present throughout this encounter. Physical Therapy Visit Comments Patient Comments Pt is willing to participate with PT Patient Goals Return home and continue chemo . Improve activity tolerance Therapy Pain Assessment Pain When Pain Assessed At Rest Pain Present Pain Present Pain Reported Location left lower abd Intensity 4 M4 PT-IP Mobility and Gait Start: 02/06/22 16:10 Freq: NEEDED Status: Active Protocol: Document 02/06/22 16:45 AW (Rec: 02/06/22 17:52 AW [id number]) PT-Bed Mobility Assessment Supine to Sit Supine to Sit Contact Guard Assistance,Head of Bed Elevated,Bedrails Sit to Supine Sit to Supine Standby Assistance PT-Transfer Assessment Sit to and From Stand Sit to and from Stand Standby Assistance,Use of Upper Extremities Equipment Transfer Assistive Device None,Gait Belt Transfers Transfer Destination Bed Transfer Technique ambulated Transfer Ability Level of Assist Standby Assistance Comments Mobility Comments Pt was lying in bed as PT arrived. She sat up EOB CGA with HOB elevated and heavy use of bed rails. She stood SBA and agreed to ambulate in the halls. She walked 75 feet with IV pole support and 75 feet without support SBA/CGA. On return to the room, she returned to supine SBA. Gait Assessment Gait Gait Assistance Required: Standby Assistance,Contact Guard Assist Distance (Feet) 150 Assistive Devices Assistive Device Gait Belt Gait Deviations General Gait Pattern Decreased Stride Length, Decreased Feet Clearance,Wide Based Gait Factors Limiting Gait Function Factors Limiting Gait Function Decreased Activity Tolerance, Decreased Sensation,Decreased Strength,Pain Comments Gait Comments Pt needed up to CGA for ambulation without IV pole support. She was too tired today to trial SPC but agreed to work on mobility with AD tomorrow. Stair Climbing Assessment Comments Stair Climbing Comments No stairs at home PT-Balance Assessment Sitting Balance and Reactions Static Sitting Balance Ability Good Dynamic Sitting Balance Ability Good Standing Balance and Reactions Static Standing Balance Ability Good Dynamic Standing Balance Ability Good M5 PT-IP Objective Assessments Start: 02/06/22 16:10 Freq: NEEDED Status: Active Protocol: Document 02/06/22 16:45 AW (Rec: 02/06/22 17:52 AW [id number]) Orientation Orientation/Cognition Level of Alertness Alert Orientation Name,Day of Week,Place, Situation Language Function Ability No Deficits Noted Safety Awareness Understands Safety Issues Memory Description No Deficits Noted Gross Range of Motion Lower Extremity ROM Assessment Within Functional Limits Strength Lower Extremity Strength Assessment Bilaterally Impaired Hip 4-/5 Knee 4/5 Ankle 4/5 Sensation Assessment Sensation Gross Sensation Right LE Impaired,Left LE Impaired Light Touch Impaired Proprioception (Position) Impaired Sensation Description Numbness Comments Sensation Comments Pt has chemo-induced neuropathy which mostly affects her toes and plantar met heads. Muscle Tone Muscle Tone WNL Yes M6 PT-IP Treatment Start: 02/06/22 16:10 Freq: NEEDED Status: Active Protocol: Document 02/06/22 16:45 AW (Rec: 02/06/22 17:52 AW [id number]) Physical Therapy Treatment Education Education Provided Safety M7 PT-IP Assessment and Plan Start: 02/06/22 16:10 Freq: NEEDED Status: Active Protocol: Document 02/06/22 16:45 AW (Rec: 02/06/22 17:52 AW [id number]) PT Summary Assessment and Plan Potential Rehabilitation Potential Good Status of Condition at Evaluation Evolving Summary Impairments Pain,Strength,Balance, Sensation,Bed Mobility, Transfers,Gait,Activity Tolerance Assessment Summary Aishwarya is a 66 yo woman with complex medical history including metastatic endometrial cancer. PLOF: Pt was independent with household distances and short community distances. She was modified independent with ADL management and could tolerate sitting in a car to go to [place] for chemotherapy. CLOF : Pt presents with BLE weakness affecting her gait stability without AD. She would benefit from continued acute PT for gait training with least restrictive assistive device. She may also benefit from home health therapies to improve her strength and to manage fatigue associated with chemotherapy. Goals Bed Mobility Goal Independent Transfer Goal Independent,Cane Gait Goal Independent,Cane Gait Distance 150 Frequency of Treatment Frequency Of Treatment Once a Day Treatment Plan Physical Therapy Treatment Plan Bed Mobility Training,Transfer Training,Gait Training, Therapeutic Exercise,Balance Retraining,Discharge Planning, Hot or Cold Pack,Neuromuscular Re-ed Other Recommendations and Next Treatment gait training with SPC/LRAD Focus Recommendations To Nursing Amount of Assist Needed Standby Assistance Discharge Recommendations PT Discharge Recommendations Home with Assistance,Home Health Transportation Needs at Discharge Private Vehicle
--- NOTE | 2022-02-06 17:25 | CM.DPC ---
DCP Continued: CM spoke with patient today to discuss solidifying a DC plan. patient wants to go home with [facility] when medically stable, patient does not want SNF at all she wants to go home. Cm called [facility] who stated that they would probably be able to start services on Monday or Monday this week just need to get insurance auth on there end. CM sent clinicals and F2F for them to review. Patient lives at home with a room mate who is planning on helping her with recovery needs. RADHA spoke with Dr cole who stated patient should be ready for DC tomorrow as long as her Creatinine has improved. CM team will follow and call and check in with [facility] tomorrow to make sure they will accept the patient and send them DC summary when it is ready. Radha Guzman RNfacility manager
[2022-02-06 19:40] VITALS: BP 106/50; PULSE 80; RESP 15; TEMP 36.3; O2SAT 98
[2022-02-06] MEDS: polyethylene glycoL 3350 17 GM POWD.PACK PO (22:11)
[2022-02-06] MEDS: OXYCODONE IR 10 MG TABLET PO (22:11)
[2022-02-07 01:40] VITALS: BP 101/54; PULSE 75; RESP 18; TEMP 36; O2SAT 96
[2022-02-07] MEDS: SODIUM CHLORIDE 0.9% 1,000 ML 100 ML IV (04:41)
[2022-02-07 05:43] LABS: Add Manual Diff / Slide Review NO; Basophils Absolute Auto 0 /uL (0-100); Basophils Percent Auto 0.2 % (0-2); Eosinophils Absolute Auto 200 /uL (0-450); Eosinophils Percent Auto 1.1 % (2-4); Hematocrit 30.6 % (36-46); Hemoglobin 10.2 g/dL (12.0-16.0); Lymphocytes Absolute Auto 600 /uL (1100-4500); Lymphocytes Percent Auto 3.6 % (25-40); Mean Corpuscular HGB Conc 33.4 % (30-36); Mean Corpuscular Hemoglobin 32.4 PG (26-34); Mean Corpuscular Volume 97.2 fL (80-100); Monocytes Absolute Auto 1300 /uL (0-900); Monocytes Percent Auto 8.3 % (3-14); Neutrophils Absolute Auto 14000 /uL (1500-7000); Neutrophils Percent Auto 86.8 % (50-75); Platelet Count 557 X10^3/uL (150-400); Red Blood Cell Count 3.15 X10^6/uL (4.0-5.2); Red Cell Distribution Width 15.3 % (11.6-14.8); White Blood Cell Count 16.1 X10^3/uL (4.5-11.0)
[2022-02-07 05:55] LABS: BUN Creatinine Ratio 40.6 (6-22); Blood Urea Nitrogen 67 mg/dL (7-17); Calcium 8.1 mg/dL (8.4-10.2); Carbon Dioxide 15 mmol/L (22-32); Chloride 104 mmol/L (98-107); Estimated Glomerular Filt Rate 34 mL/min (>60); Glucose 104 mg/dL (80-110); HEMOLYSIS 27 (0-50); Potassium 4.6 mmol/L (3.4-5.1); Sodium 130 mmol/L (137-145)
[2022-02-07 07:04] VITALS: BP 105/59; PULSE 77; RESP 17; TEMP 36.3; O2SAT 97
[2022-02-07] MEDS: ACETAMINOPHEN 325 MG TABLET 975 MG PO ×2 (07:07→15:56)
--- NOTE | 2022-02-07 08:48 | PC.NURSE ---
Addendum entered by aSndi Eagle R.N. 02/07/22 14:14: Patient showered with the help of her friend and child care attendant school. She has been heplocked and will be discharging home at 1600 with her roommate. Given 5mg of oxycodone at 1330 and helpful for discomfort. Patient is resting comfortably and ate some of her lunch. Original Note: Assess- Patient is alert and oriented x4, she was given tylenol at 0700. She states that this helps her the most for discomfort. Patients dressing to lower midline is cdi, patient has a tumor that is protruding through her abdominal skin. transit planner is in the room, patient ate some at breakfast and is resting comfortably.
[2022-02-07] MEDS: FAMOTIDINE 20 MG TABLET PO (08:52)
[2022-02-07] MEDS: APIXABAN 5 MG TABLET PO (08:52)
[2022-02-07] MEDS: SENNOSIDES 8.6 MG TABLET PO (08:52)
[2022-02-07] MEDS: OXYCODONE IR 10 MG TABLET PO ×2 (09:39→13:04)
--- NOTE | 2022-02-07 10:32 | PM.DS.1 ---
History of Present Illness History of Present Illness Date Patient Seen: 02/07/22 Chief complaint: Endometrial cancer, NonHodgkins lymphoma, ABD pain Narrative: Per Dr. Cruz, Ms. Lisa is a 66W with PMH endometrial cancer, follicular lymphoma, HTN, DVT who presents to the hospital with worsening abdominal pain. She notes that she gets discomfort after eating food. This has worsened especially within the last week. She has intermittent diarrhea. No nausea, vomiting. No dysuria. No cough or shortness of breath. Her pain is in the upper abdomen and down the flank. She has not had a fever. She has known cancer and been on treatment for 2 years. She is apparently about to start new treatment scheduled for tomorrow. She has a known large mass near the ascending colon that is not able to be resected, and she has known liver mets, and significant peritoneal carcinomatosis. She is aware that her cancer is not curable. She has a right chest port and has no erythema or pain there. She has a extruding tumor in her abdomen that has intermittent drainage, but is not painful currently. In the ED workup was done, vitals notable for hypotension with blood pressures systolic in the 70s. Labs notable for WBC 14, hgb 11.3, plts 491, BUN 80, creatinine 1.68. Lactate 0.9. Procal 1.69. UA negative. Flu, COVID, RSV negative. Chest xray negative. Ct abdomen/pelvis shows large mass near ascending colon, peritoneal carcinomatosis, heptatic metastatsis, ascites. Discharge Providers Provider Date of admission: 02/03/22 17:21 Discharge Date: 02/07/22 Primary care physician: Angelo Lozano DO Consults: 02/06/22 15:46 Consult to Physical Therapy Evaluate & Treat Comment: Physician Instructions: Evaluate and Treat Discharge provider: Kailash Charles DO Summary Hospital Course Discharge Diagnosis: Please see hospital course by problem list noted below: Hospital Course: Metastatic endometrial cancer CT imaging done here revealed doubling of her ascending colon mass.? Her gynecologic oncologist at the [facility] plans to start chemotherapy on 02/14.? Infectious workup was unremarkable and she really has not had any evidence of infection.? Suspect her leukocytosis was secondary to disease progression rather than infection.? Pain is better controlled with 12 mcg fentanyl patch and 2.5 from oxycodone as well as 975 mg of Tylenol t.i.d.. This was continued on discharge. Lymphoma, follicular At this time, patient is followed primarily as surveillance from [facility].? She is not on any active treatment. Acute kidney injury Creatinine continues to increase a bit each day, up yesterday to 2.35 but then improved quickly.? Suspect her VINCENT is from [facility].? She did come in with some mild VINCENT, underwent a contrast CT in the setting of hypotension, lisinopril use on an outpatient basis, and poor overall hydration.? Continued IV fluids with eventual improvement and she was encouraged to eat small, frequent meals.?There was no evidence of external compression of the kidneys or ureters from tumor burden on imaging performed.. Chronic DVT Continued on eliquis Hypotension/SIRS Patient has no systemic symptoms or concerns for illness.? As noted, cultures remain negative. Likely in setting of dehydration, poor PO intake, and lisinopril use. Lisinopril not recommended at the time of discharge. Time Spent with Patient Time spent: Greater than 30 minutes Exam Vital Signs (past 8 hours): - 02/07/22 07:04 Temperature 97.3 F L Pulse Rate 77 Respiratory Rate 17 Blood Pressure 105/59 L Pulse Oximetry 97 Oxygen Flow Rate 0 Oxygen Delivery Method Room Air Oxygen Flow Rate 0 Narrative Exam Narrative: GEN:? Very pleasant chronically ill-appearing pale middle-aged female, alert and oriented x 3, smiling today, NAD HEENT:NC, Face symmetric CHEST: Respiratory excursions symmetric, CTAB CV: RRR, no M/R/G ABD: Soft, large firm masses palpable within both the right lower abdomen and mid abdomen, large ventral hernia, she has a small area of erosion around her umbilicus as well as obvious tumor growth, bowel tones are present in all 4 quadrants EXTR: warm, well perfused, no C/C/E SKIN: warm and dry, no rash NEURO:? Alert and oriented, nonfocal Objective Labs Result Diagrams: 02/07/22 04:57 02/07/22 04:57 Labs: Laboratory Results - last 24 hr 02/07/22 02/07/22 04:57 04:57 WBC 16.1 H RBC 3.15 L Hgb 10.2 L Hct 30.6 L MCV 97.2 MCH 32.4 MCHC 33.4 RDW 15.3 H Plt Count 557 H Neut % (Auto) 86.8 H Lymph % (Auto) 3.6 L [place] % (Auto) 8.3 Eos % (Auto) 1.1 L Baso % (Auto) 0.2 Neut # (Auto) 18231 H Lymph # (Auto) 600 L [place] # (Auto) 1300 H Eos # (Auto) 200 Baso # (Auto) 0 Sodium 130 L Potassium 4.6 Chloride 104 Carbon Dioxide 15 L BUN 67 H Creatinine 1.65 H Estimated GFR 34 L BUN/Creatinine Ratio 40.6 H Glucose 104 Calcium 8.1 L PFSH Medical History Actinic keratosis due to exposure to sunlight BMI 45.0-49.9, adult Diabetes Endometrial cancer HTN (hypertension) Lymphocytopenia Non-Hodgkins lymphoma Right arm pain Screening for breast cancer Transaminitis Vitamin D deficiency Surgical History S/P tonsillectomy and adenoidectomy Family History Father Diabetes mellitus Mother CAD (coronary artery disease) Social History household members: none and other Smoking Status: Never smoker alcohol intake: current substance use type: does not use Discharge Plan Discharge Plan Patient Disposition: Home Provider Discharge Comment: Follow-up for Taxol infusion as per Dr. Valentine Continue to work on increasing your activity as tolerated Make an effort to drink 2 liters of fluid daily Eat small, nutritionally rich meals Discharge orders & Medications Prescriptions: New sennosides [senna] 8.6 mg Tablet 8.6 mg PO BID PRN (Reason: Constipation) Qty: 30 0RF acetaminophen 325 mg Tablet 975 mg PO Q8H PRN (Reason: Fever/Mild Pain (1-3)) Qty: 30 0RF famotidine [Pepcid AC] 20 mg Tablet 20 mg PO DAILY Qty: 30 0RF oxycodone 5 mg Tablet 2.5 mg PO Q2H PRN (Reason: Pain, Moderate (4-6)) Qty: 30 0RF fentanyl 12 mcg/hr Patch 72 Hour 12 mcg topical Q72H Qty: 5 0RF Continued Eliquis 5 mg tablet 5 mg PO BID magnesium oxide 400 mg magnesium tablet 400 mg PO BID senna 8.6 mg capsule 8.6 mg PO DAILY PRN (Reason: Constipation) Discontinued lisinopril 10 mg tablet 20 mg PO DAILY Follow up/Referrals: Angelo Lozano DO [Primary Care Provider] - Diet/Activity/Treatments Diet: Diet as Tolerated and Regular Activity: As tolerated Oxygen: N/A Other treatments: Home Health PT/OT eval and treat Visit Report/Discharge Packet Instructions: Sepsis, DI for Sepsis -- Adult, Fentanyl Transdermal Patch, Oxycodone, DI for Acute Kidney Injury Discharge Data Primary Care Provider: Angelo Lozano Quality VTE Deep Vein Thrombosis/Pulmonary Embolism Present on Admission: No
--- NOTE | 2022-02-07 11:25 | PT.IPTN ---
Current Diagnoses Hypotension, unspecified (02/03/22) Physical Therapy Treatment Note M2 PT-IP Current Condition Start: 02/06/22 16:10 Freq: NEEDED Status: Active Protocol: Document 02/07/22 10:53 SP (Rec: 02/07/22 14:58 SP [id number]) Physical Therapy Current Condition Current Condition Evaluation Date 02/06/22 Treatment Diagnosis metastatic endometrial cancer; impaired mobility Onset Date 01/24/22 M3 PT-IP Subjective Start: 02/06/22 16:10 Freq: NEEDED Status: Active Protocol: Document 02/07/22 10:53 SP (Rec: 02/07/22 14:58 SP [id number]) Subjective Physical Therapy Visit Type Type Treatment Note Visit Start Time 10:53 Visit Stop Time 11:25 Total Visit Minutes 33 Notes Roomate was present and completed caregiver training with pt including donning gait belt/physical support required during tx, sister arrived end tx is also someone will be assisting pt mainly for transportation. GRACIELA Ruiz provided assist and instruction to pt as needed to support CROP DUSTER during caregiver training while under direct supervision and guidence of CROP DUSTER Katarina throughout tx. Number of CROP DUSTER Visits 1 Physical Therapy Visit Comments Patient Comments Pt is willing to participate with PT Patient Goals Return home and continue chemo . Improve activity tolerance in functional mobility. Therapy Pain Assessment Pain When Pain Assessed During Mobility Pain Present Pain Present Pain Reported Location left lower abd Scale Used moderate Description Aching Pain Behaviors Facial Grimacing,Guarding Pain Management Techniques Distraction M4 PT-IP Mobility and Gait Start: 02/06/22 16:10 Freq: NEEDED Status: Active Protocol: Document 02/07/22 10:53 SP (Rec: 02/07/22 14:58 SP [id number]) PT-Bed Mobility Assessment Supine to Sit Supine to Sit Standby Assistance,Head of Bed Elevated,Bedrails Scooting Scooting to Edge of Bed Standby Assistance PT-Transfer Assessment Sit to and From Stand Sit to and from Stand Standby Assistance,Contact Guard Assistance,Use of Upper Extremities Equipment Transfer Assistive Device Gait Belt,Straight Cane Transfers Transfer Destination Chair Transfer Technique pt ambulated using personal wooden SPC Transfer Ability Level of Assist Contact Guard Assistance,1 Person Assistance,Use of Upper Extremities Comments Mobility Comments Pt completed elevated supine> sit, scoot to EOB SBA with use of bed rail. sit>stand CGA/ SBA, SPT using SPC bed>chair, CG/SBA. STS from chair SBA, progressed gait into hallway approx [address], 1 stand stop rest 3/4 way then return to room, 2nd stop stand rest 1/[address] way back contact wall for support for self approx CG/SBA via roomate/SPTA, noted trunk sways but no LOB. Pt returned to room chair. CROP DUSTER/SPTA recommended Gait Assessment Gait Gait Assistance Required: Standby Assistance,Contact Guard Assist Distance (Feet) 200 Able to Maintain Weight Bearing Status Yes During Gait Assistive Devices Assistive Device Gait Belt,Straight Cane Orthotic/Prosthetic Devices or Brace: No Gait Deviations General Gait Pattern Antalgic,Decreased Stride Length,Decreased Feet Clearance,Wide Based Gait Factors Limiting Gait Function Factors Limiting Gait Function Decreased Activity Tolerance, Decreased Strength,Pain, Respiratory Distress Comments Gait Comments close SBA initially/CGA as distance progressed due to noted slight trunk sways no LOB, recovers quickly with stand stop rest, use SPC. Recommended FWW longer distance for energy conservation and ed for breath needed, standing rest breaks for recovery. Stair Climbing Assessment Comments Stair Climbing Comments No stairs at home PT-Balance Assessment Sitting Balance and Reactions Static Sitting Balance Ability Good Dynamic Sitting Balance Ability Good Standing Balance and Reactions Static Standing Balance Ability Good Dynamic Standing Balance Ability Good Device Used SPC M5 PT-IP Objective Assessments Start: 02/06/22 16:10 Freq: NEEDED Status: Active Protocol: Document 02/06/22 16:45 AW (Rec: 02/06/22 17:52 AW [id number]) Orientation Orientation/Cognition Level of Alertness Alert Orientation Name,Day of Week,Place, Situation Language Function Ability No Deficits Noted Safety Awareness Understands Safety Issues Memory Description No Deficits Noted Gross Range of Motion Lower Extremity ROM Assessment Within Functional Limits Strength Lower Extremity Strength Assessment Bilaterally Impaired Hip 4-/5 Knee 4/5 Ankle 4/5 Sensation Assessment Sensation Gross Sensation Right LE Impaired,Left LE Impaired Light Touch Impaired Proprioception (Position) Impaired Sensation Description Numbness Comments Sensation Comments Pt has chemo-induced neuropathy which mostly affects her toes and plantar met heads. Muscle Tone Muscle Tone WNL Yes M6 PT-IP Treatment Start: 02/06/22 16:10 Freq: NEEDED Status: Active Protocol: Document 02/07/22 10:53 SP (Rec: 02/07/22 14:58 SP [id number]) Physical Therapy Treatment Education Education Provided Safety M7 PT-IP Assessment and Plan Start: 02/06/22 16:10 Freq: NEEDED Status: Active Protocol: Document 02/07/22 10:53 SP (Rec: 02/07/22 14:58 SP [id number]) PT Summary Assessment and Plan Potential Rehabilitation Potential Good Status of Condition at Evaluation Evolving Summary Impairments Pain,Strength,Balance, Sensation,Bed Mobility, Transfers,Gait,Activity Tolerance Progress Towards Goals Progressing Toward Goals,Slow Progress due to Activity Tolerance Assessment Summary Pt SBA during elevated bed mob (pain abdomen supine so looking into hospital bed for home). SBA/CGA using SPC during gait up to 200ft with 3 stop stand rests for recovery . REcommended use FWW longer distances for energy conservation with agreement and has at home. Pt is ok to return home with HHPT and roomate/sister to assist her when medically cleared. Goals Bed Mobility Goal Independent Transfer Goal Independent,Cane Gait Goal Independent,Cane Gait Distance 150 Frequency of Treatment Frequency Of Treatment Once a Day Treatment Plan Physical Therapy Treatment Plan Bed Mobility Training,Transfer Training,Gait Training, Therapeutic Exercise,Balance Retraining,Discharge Planning, Hot or Cold Pack,Neuromuscular Re-ed Other Recommendations and Next Treatment gait training with SPC/LRAD Focus Recommendations To Nursing Amount of Assist Needed Standby Assistance,1 Person Assist Discharge Recommendations PT Discharge Recommendations Home with Assistance,Home Health Equipment Needed for Home Before Pt stated wants to use trek Discharge poles Transportation Needs at Discharge Private Vehicle
[2022-02-07 12:00] VITALS: BP 99/58; PULSE 87; RESP 16; TEMP 35.9; O2SAT 96
--- NOTE | 2022-02-07 15:14 | CM.DPC ---
DCP note continued. DCArt Garcia RN provides patient with [facility] brochure and information about hospital beds through [facility]. COMPUTER SALESPERSON RETAIL calls PCP Dr. Lozano's office to initiate order for hospital bed, it is reported that they will forward order to [facility] per patient's request. COMPUTER SALESPERSON RETAIL and DCP enter room to meet with patient and friend. COMPUTER SALESPERSON RETAIL informs both about hospital bed order from PCP and HH referral with services starting as soon as tomorrow with [facility]. Patient endorses concern about pain medication upon d/c and COMPUTER SALESPERSON RETAIL reviews this with hospitalist. COMPUTER SALESPERSON RETAIL to fax d/c summary to [facility] upon patient's d/c. Plan: Patient to d/c to home today with friend with [facility] referral and order for hospital bed. JAYLYN WallSW
[2022-02-07] MEDS: fentaNYL 12 MCG/PATCH TOP (15:56)
== END 2022-02-07 16:15 | disposition home health service (06) | DRG 754 ==
LOC: ED 17:10 → AC 17:22
PROVIDERS: Family Medicine; Admitting Provider Student in an Organized Health Care Education/Training Program; Emergency Provider Emergency Medicine; PCP Family Medicine; Referring Provider Emergency Medicine; Visit Provider Student in an Organized Health Care Education/Training Program
DX: C54.1 Malignant neoplasm of endometrium (principal); N17.0 Acute kidney failure with tubular necrosis; C78.7 Secondary malignant neoplasm of liver and intrahepatic bile duct; R65.10 Systemic inflammatory response syndrome (SIRS) of non-infectious origin without acute organ dysfunction; C82.93 Follicular lymphoma, unspecified, intra-abdominal lymph nodes; C78.02 Secondary malignant neoplasm of left lung; C78.01 Secondary malignant neoplasm of right lung; I95.9 Hypotension, unspecified; Z20.822 Contact with and (suspected) exposure to COVID-19; Z86.718 Personal history of other venous thrombosis and embolism; Z79.01 Long term (current) use of anticoagulants; Z66 Do not resuscitate
CPT/HCPCS: 0241U; 36415; 36591; 36592; 71045; 74177; 80048; 80053; 81003; 81015; 83605; 83690; 83735; 84145; 85025; 85610; 86850; 86900; 86901; 87040; 87086; 93005; 96365; 97116; 97162; 99284; A9270; J1170; J1642; J2543; Q9967